=== PATIENT | male | born 1935 | race Caucasian/White ===

== ENCOUNTER → 2017-10-30 | Outpatient (CLI) | payer MEDICARE | END | disposition home or self-care (01) | LOC: SHCH 09:16 | PROVIDERS: ATTEND Internal Medicine Cardiovascular Disease | DX: I35.0 Nonrheumatic aortic (valve) stenosis (principal) | CPT/HCPCS: 93306 ==

== ENCOUNTER → 2018-11-13 | Outpatient (CLI) | payer MEDICARE | END | disposition home or self-care (01) | LOC: SHCH 10:38 | PROVIDERS: ATTEND Internal Medicine Cardiovascular Disease | DX: I35.0 Nonrheumatic aortic (valve) stenosis (principal); I70.0 Atherosclerosis of aorta; I51.7 Cardiomegaly | CPT/HCPCS: 93306 ==

== ENCOUNTER 2019-01-25 06:56 | Day surgery (SDC) | payer MEDICARE ==
[2019-01-23 08:53] VITALS: BP 105/51
[2019-01-23 09:00] LABS: BASOPHILS % (AUTO) 0.4 % (0.0-5.0); EOSINOPHILS % (AUTO) 3.9 % (0.0-8.0); LYMPHOCYTES % (AUTO) 24.2 % (21.0-51.0); MEAN CORPUSCULAR HEMOGLOBIN 33.7 pg (27.0-33.0); MEAN CORPUSCULAR HGB CONC 33.6 g/dL (32.0-36.0); MEAN CORPUSCULAR VOLUME 100.3 fL (79-99); MONOCYTES % (AUTO) 7.2 % (3.0-13.0); NEUTROPHILS % (AUTO) 64.3 % (40.0-77.0); PLATELET COUNT (AUTO) 237 K/uL (130-400); RED BLOOD CELL COUNT(AUTO) 4.08 MIL/uL (4.50-6.20); RED CELL DISTRIBUTION WIDTH 13.1 % (11.0-15.5); WHITE BLOOD COUNT (AUTO) 6.8 K/uL (4.8-10.8)
[2019-01-23 09:07] LABS: APPEARANCE,URINE Clear (CLEAR); BILIRUBIN,URINE Negative (NEGATIVE); COLOR,URINE Yellow (YELLOW); GLUCOSE, URINE (UA) 250 mg/dL (NEGATIVE); KETONES,URINE Negative (NEGATIVE); LEUKOCYTE ESTERASE ,URINE Small (NEGATIVE); NITRATE,URINE Negative (NEGATIVE); OCCULT BLOOD,URINE Large (NEGATIVE); PROTEIN,URINE Trace mg/dL (NEGATIVE); UROBILINOGEN,URINE 0.2 mg/dL (0.2-1.0)
[2019-01-23 09:10] LABS: CREATININE 0.9 mg/dL (0.5-1.5); POTASSIUM 4.1 mmol/L (3.5-5.1)
[2019-01-23 09:34] LABS: INR 1.02 (0.85-1.15); PARTIAL THROMBOPLASTIN TIME 26.1 SEC (26.3-35.5); PROTHROMBIN TIME 10.7 SEC (9.6-11.6)
[2019-01-23 09:42] LABS: BACTERIA,URINE Rare /HPF (None Seen); RBC,URINE 0-1 /HPF (0-1); SQUAMOUS EPITHELIAL CELL,UR Rare /HPF (0-2)
[2019-01-25] VITALS (12 sets, daily range): BP systolic 110–137; BP diastolic 54–66
[~2019-01-25] VITALS: Ht 170.2 cm; Wt 75.4 kg
[~2019-01-25 06:56] MED LIST: ASPI-1197 PO; ATOR-2 PO; CLOP75TA32 PO; ISOSORBIDE PO; METH-370 PO; TAMS-1 PO
[2019-01-25] MEDS ORDERED: SODIUM CHLORIDE 0.9% 1000ML 1,000 ML IV ONE (07:08)
[2019-01-25] MEDS ORDERED: NITROGLYCERIN 5 MG/ML 10 ML VIAL IV ONE (08:48)
[2019-01-25] MEDS ORDERED: IOHEXOL-350 50ML VIAL IV ONE (08:48)
[2019-01-25] MEDS ORDERED: LIDOCAINE HCL 2% 20ML ONE (08:48)
[2019-01-25] MEDS ORDERED: IOHEXOL 350 MG/ML 100ML INFUS..BTL IV ONE (08:48)
[2019-01-25] MEDS ORDERED: FENTANYL CITRATE PF 50 MCG/1 ML 2ML VIAL ONE (09:02)
[2019-01-25] MEDS ORDERED: MIDAZOLAM HCL 1 MG/ML 2ML VIAL ONE (09:02)
[2019-01-25] MEDS ORDERED: HEPARIN SODIUM 1000UNIT/ML 10ML VIAL ONE (09:20)
[2019-01-25] MEDS ORDERED: SODIUM CHLORIDE 0.9% 1000ML 1,000 ML IV SCH (09:49)
[2019-01-25] MEDS ORDERED: DEXTROSE 50%-WATER 50 ML DISP.SYRIN IV PRN (10:00)
[2019-01-25] MEDS ORDERED: ACETAMINOPHEN-CODEINE 300/30MG TAB PO PRN (10:00)
[2019-01-25] MEDS ORDERED: GLUCAGON 1MG KIT 1 MG ML IM PRN (10:00)
[2019-01-25] MEDS ORDERED: METOPROLOL TARTRATE 1 MG/ML 5ML VIAL IV PRN (10:00)
[2019-01-25] MEDS ORDERED: HYDRALAZINE HCL 20 MG/ML VIAL IV PRN (10:00)
--- NOTE | 2019-01-25 12:30 | NUR ---
RESUME RESUMED CARE OF PATIENT FROM ENID ARNETT RN. PT LYING IN BED, NO DISTRESS NOTED. DSTAT DRESSING DRY AND INTACT TO RIGHT GROIN
--- NOTE | 2019-01-25 16:00 | NUR ---
DC DC INSTRUCTIONS GIVEN TO PT/PTS , INSTRUCTED TO F/U WITH DR. DONALD , AND TO FOLLOW UP AT [facility] [place] ON JANUARY 30 AT 10 AM FOR CTA/TAVR PROTOCOL, TO KEEP NPO AFTER MN ON 01-29-19 FOR PROCEDURE. , PIV REMOVED TO LEFT ARM. SMALL BRUISING NOTED TO ARM AFTER PRESSURED APPLIED TO SITE. PT / SPOUSE VERBALIZED UNDERSTANDING. RIGHT GROIN DSTAT DRESSING DRY AND INTACT,
--- NOTE | 2019-01-25 16:05 | NUR ---
DC PT DC HOME VIA WC, NO DISTRESS NOTED. DENIES ANY PAIN OR DISCOMFORTS. ACCOMPANIED BY SPOUSE
== END 2019-01-25 16:05 | disposition home or self-care (01) ==
LOC: DAH 06:56
PROVIDERS: ATTEND Internal Medicine Cardiovascular Disease
DX: I25.118 Atherosclerotic heart disease of native coronary artery with other forms of angina pectoris (principal); Z79.899 Other long term (current) drug therapy; I35.0 Nonrheumatic aortic (valve) stenosis; Z95.5 Presence of coronary angioplasty implant and graft; E78.5 Hyperlipidemia, unspecified; Z98.890 Other specified postprocedural states; I25.5 Ischemic cardiomyopathy; F17.210 Nicotine dependence, cigarettes, uncomplicated; Z79.01 Long term (current) use of anticoagulants
CPT/HCPCS: 36415; 71045; 80048; 81001; 85025; 85610; 85730; 93005; 93460; A4606; C1894 ×3; J1644 ×2; J2250; J3010; J3490 ×2; J7030; Q9965; Q9967 ×2; 99156; 99157

== ENCOUNTER → 2019-01-30 | Outpatient (CLI) | payer MEDICARE ==
[~2019-01-30] MED LIST changes: +IOHEXOL 350 MG/ML 100ML INFUS..BTL IV ONE; +IOHEXOL-350 75 ML VIAL IV ONE; +METOPROLOL TARTRATE 1 MG/ML 5ML VIAL IV ONE
== END | disposition home or self-care (01) ==
LOC: RAH 09:56
PROVIDERS: ATTEND Internal Medicine Cardiovascular Disease
DX: N40.0 Benign prostatic hyperplasia without lower urinary tract symptoms (principal); I70.0 Atherosclerosis of aorta; N32.9 Bladder disorder, unspecified; E04.9 Nontoxic goiter, unspecified; Z90.49 Acquired absence of other specified parts of digestive tract
CPT/HCPCS: 74174; 75574; J3490; Q9967

== ENCOUNTER 2019-05-16 12:30 | Observation (INO) | payer MEDICARE ==
[~2019-05-16] VITALS: Ht 172.7 cm; Wt 71.7 kg
[~2019-05-16 12:30] MED LIST changes: -IOHEXOL 350 MG/ML 100ML INFUS..BTL IV ONE; -IOHEXOL-350 75 ML VIAL IV ONE; -METOPROLOL TARTRATE 1 MG/ML 5ML VIAL IV ONE
[2019-05-16] MEDS ORDERED: SODIUM CHLORIDE 0.9% 1000ML 1,000 ML IV SCH (13:00)
[2019-05-16] MEDS ORDERED: DEXAMETHASONE SOD PHOSPHATE 10MG/ML 1ML VIAL IV ONE (14:00)
[2019-05-16] MEDS ORDERED: DiphenhydrAMINE HCL 50 MG/ML VIAL ONE (14:00)
[2019-05-16] MEDS ORDERED: DEXAMETHASONE SOD PHOSPHATE 10MG/ML 1ML VIAL ONE (14:00)
[2019-05-16] MEDS ORDERED: DiphenhydrAMINE HCL 50 MG/ML VIAL IVP ONE (14:00)
[2019-05-16 15:00] VITALS: BP 111/53
[2019-05-16] MEDS ORDERED: SODIUM CHLORIDE 0.9% 500ML 500 ML IV ONE (16:22)
[2019-05-16 20:14] VITALS: BP 116/67
[2019-05-17 00:10] VITALS: BP 109/56
[2019-05-17 04:22] VITALS: BP 106/60
[2019-05-17 05:03] LABS: HEMATOCRIT 29.8 % (42-54); MEAN CORPUSCULAR HEMOGLOBIN 32.7 pg (27.0-33.0); MEAN CORPUSCULAR HGB CONC 35.2 g/dL (32.0-36.0); PLATELET COUNT (AUTO) 50 K/uL (130-400); WHITE BLOOD COUNT (AUTO) 3.7 K/uL (4.8-10.8)
[2019-05-17 08:08] VITALS: BP 106/58
[2019-05-17 11:24] VITALS: BP 105/64
--- NOTE | 2019-05-17 13:06 | NUR ---
DISCHARGE INSTRUCTIONS GIVEN. PATIENT IV DISCONTINUED WITH INNER CANNULA INTACT / ALL QUESTIONS ANSWERED. PATIENT TO FOLLOW UP WITH DR. PARSONS.
== END 2019-05-17 13:15 | disposition home or self-care (01) ==
LOC: EDH 12:30 → 2AH 12:31 → INTOOBSV 12:31 → 3AH 14:52
PROVIDERS: ADMIT Internal Medicine Hematology & Oncology; ATTEND Internal Medicine Hematology & Oncology
DX: C67.4 Malignant neoplasm of posterior wall of bladder (principal); I35.0 Nonrheumatic aortic (valve) stenosis; N40.1 Benign prostatic hyperplasia with lower urinary tract symptoms; I25.10 Atherosclerotic heart disease of native coronary artery without angina pectoris; H93.13 Tinnitus, bilateral; E07.9 Disorder of thyroid, unspecified; H04.123 Dry eye syndrome of bilateral lacrimal glands; Z97.4 Presence of external hearing-aid; Z96.1 Presence of intraocular lens; Z87.891 Personal history of nicotine dependence; Z79.899 Other long term (current) drug therapy
CPT/HCPCS: 36415 ×2; 36430 ×2; 85014; 85018; 85027; 86850; 86900; 86901; 86922; 99284; G0378 ×13; J1100; J1200; J7040; P9016 ×2; P9034

== ENCOUNTER → 2020-01-30 | Outpatient (CLI) | payer MEDICARE | END | disposition home or self-care (01) | LOC: SHCH 08:08 | PROVIDERS: ATTEND Internal Medicine Cardiovascular Disease | DX: Z95.2 Presence of prosthetic heart valve (principal); I35.0 Nonrheumatic aortic (valve) stenosis | CPT/HCPCS: 93306 ==

== ENCOUNTER → 2020-02-25 | Outpatient (CLI) | payer MEDICARE ==
[~2020-02-25] MED LIST changes: +IOHEXOL 350 MG/ML 100ML INFUS..BTL IV ONE
== END | disposition home or self-care (01) ==
LOC: RAH 07:52
PROVIDERS: ATTEND Urology
DX: K76.0 Fatty (change of) liver, not elsewhere classified (principal); K57.30 Diverticulosis of large intestine without perforation or abscess without bleeding; N32.89 Other specified disorders of bladder; I70.0 Atherosclerosis of aorta; R91.1 Solitary pulmonary nodule; M47.819 Spondylosis without myelopathy or radiculopathy, site unspecified; Z85.51 Personal history of malignant neoplasm of bladder
CPT/HCPCS: 74177; Q9967

== ENCOUNTER → 2020-08-07 | Outpatient (CLI) | payer MEDICARE ==
[~2020-08-07] MED LIST changes: -IOHEXOL 350 MG/ML 100ML INFUS..BTL IV ONE
== END | disposition home or self-care (01) ==
LOC: SHCH 08:36
PROVIDERS: ATTEND Internal Medicine Cardiovascular Disease
DX: I34.0 Nonrheumatic mitral (valve) insufficiency (principal); I10 Essential (primary) hypertension
CPT/HCPCS: 93306; 93356

== ENCOUNTER 2020-08-21 11:56 | Day surgery (SDC) | payer MEDICARE ==
[2020-08-18 14:55] LABS: BASOPHILS % (AUTO) 0.3 % (0.0-5.0); EOSINOPHILS % (AUTO) 2.5 % (0.0-8.0); HEMATOCRIT 38.1 % (42-54); LYMPHOCYTES % (AUTO) 26.4 % (21.0-51.0); MEAN CORPUSCULAR HEMOGLOBIN 34.4 pg (27.0-33.0); MEAN CORPUSCULAR HGB CONC 33.9 g/dL (32.0-36.0); MEAN CORPUSCULAR VOLUME 101.6 fL (79-99); MONOCYTES % (AUTO) 7.6 % (3.0-13.0); NEUTROPHILS % (AUTO) 62.9 % (40.0-77.0); PLATELET COUNT (AUTO) 156 K/uL (130-400); RED BLOOD CELL COUNT(AUTO) 3.75 MIL/uL (4.50-6.20); RED CELL DISTRIBUTION WIDTH 12.5 % (11.0-15.5); WHITE BLOOD COUNT (AUTO) 6.3 K/uL (4.8-10.8)
[2020-08-18 15:04] LABS: CREATININE 1.1 mg/dL (0.5-1.5); POTASSIUM 4.1 mmol/L (3.5-5.1)
[2020-08-18 15:05] LABS: INR 1.01 (0.85-1.15); PARTIAL THROMBOPLASTIN TIME 23.2 SEC (26.3-35.5); PROTHROMBIN TIME 10.9 SEC (9.6-11.6)
[2020-08-21] VITALS (11 sets, daily range): BP systolic 110–151; BP diastolic 52–68
[~2020-08-21] VITALS: Ht 170.2 cm; Wt 73.8 kg
[~2020-08-21 11:56] MED LIST changes: +CEFAZOLIN SODIUM 1 GM VIAL IVP SCH; +VITAMIN B12 PO; +VITAMIN D PO
--- NOTE | 2020-08-21 12:25 | NUR ---
preop pt arrived ambulatory in no distress. pt oriented to room and call light. pt has multiple bruising to arms. pt connected to playground monitor. will continue to monitor pt
[2020-08-21] MEDS ORDERED: SODIUM CHLORIDE 0.9% 1000ML 1,000 ML IV ONE (13:15)
[2020-08-21] MEDS ORDERED: BUPIVACAINE/PF 0.25% 30ML VIAL IJ ONE (14:41)
[2020-08-21] MEDS ORDERED: MEPERIDINE-PF 25 MG/ML SYG ONE ×3 (14:41→15:55)
[2020-08-21] MEDS ORDERED: CEFAZOLIN SODIUM 1 GM VIAL ONE (14:41)
[2020-08-21] MEDS ORDERED: MIDAZOLAM HCL 1 MG/ML 2ML VIAL ONE ×3 (14:41→15:55)
[2020-08-21] MEDS ORDERED: LIDOCAINE HCL 1% MDV 50ML VIAL ONE (14:41)
--- NOTE | 2020-08-21 15:08 | NUR ---
labor relations supervisor pt taken to labor relations supervisor via bed by nilson salinas rn in no distress.
[2020-08-21] MEDS ORDERED: ONDANSETRON HCL 4 MG/2 ML VIAL IV PRN (16:30)
[2020-08-21] MEDS ORDERED: ACETAMINOPHEN-CODEINE 300/30MG TAB PO PRN ×2 (16:30)
--- NOTE | 2020-08-21 16:45 | NUR ---
POST CATH RECEIVED PT AND REPORT FROM DAVE MOYA RN. PT IN LOW FOWLERS. PT IN NO DISTRESS AT THIS TIME. APPLIED ICE PACK TO SHOULDER. PT CONNECTED TO GANG SUPERVISOR. WILL CONTINUE TO MONITOR PT
--- NOTE | 2020-08-21 17:45 | NUR ---
report report given to filiberto galvez rn for continuation of care.
--- NOTE | 2020-08-21 19:15 | NUR ---
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 Also reported current NS at 100cc need to continue until d/c, infusing well. Pt denies discomfort, right groin puncture site, soft no hematoma, dressing dry/intact. Addendum: 08/21/20 at 2108 by ILIA MICHELLE RN RN Please disregard above documentation intended for another pt.
--- NOTE | 2020-08-21 20:03 | NUR ---
1944, REPORT GIVEN TO CRIS GREGORIO , PT TRANSFERED IN BED WITH PERSONAL BELONGINGS. PT STABLE, NO DISTRESS. LT UPPER CHEST PRESSURE DRESSING D/I. NO ACTIVE BLEEDING OR HEMATOMA.
--- NOTE | 2020-08-21 20:45 | NUR ---
Pt has been sited for 40 minutes, VS stable, denies pain/discomfort stated he is ready for d/c. IV access discontinued aseptically applied pressure dressing, right groin puncture site re-checked, soft on palpation, ho hematoma, dressing remain dry/intact. Pt was d/c via wheelchair accompanied by & PCP Landon. Addendum: 08/21/20 at 2107 by ILIA MICHELLE RN RN Please disregard above documentation intended for another pt.
[2020-08-21] MEDS ORDERED: CEFAZOLIN SODIUM 1 GM VIAL IVP ONE (21:00)
--- NOTE | 2020-08-21 22:45 | NUR ---
dc status dcd as ordered post x-ray of chest normal as read by radiologist. piv to left ac dcd aseptically,cath completely out ,with good hemostasis. pressure over left chest dry/intact,sling on ,with instructions given as per activity,appointments and reiterated to proceed to ER if necessary. dc documents including prescription endorsed to pt with instructions, pt verbalized understanding, v/s stable afebrile ,denies acute pain or discomfort. escorted to lobby per w/c by Chapito Addendum: 08/21/20 at 2322 by ETHEL YLON RN RN Amended: Links added.
== END 2020-08-21 22:45 | disposition home or self-care (01) ==
LOC: DAH 11:56
PROVIDERS: ATTEND Internal Medicine Cardiovascular Disease
DX: I25.5 Ischemic cardiomyopathy (principal); I50.42 Chronic combined systolic (congestive) and diastolic (congestive) heart failure; E78.5 Hyperlipidemia, unspecified; Z79.82 Long term (current) use of aspirin; Z79.899 Other long term (current) drug therapy; Z98.890 Other specified postprocedural states; Z85.51 Personal history of malignant neoplasm of bladder; Z92.21 Personal history of antineoplastic chemotherapy; Z90.49 Acquired absence of other specified parts of digestive tract; Z90.89 Acquired absence of other organs; Z83.3 Family history of diabetes mellitus; Z82.49 Family history of ischemic heart disease and other diseases of the circulatory system; Z80.9 Family history of malignant neoplasm, unspecified; Z79.01 Long term (current) use of anticoagulants
CPT/HCPCS: 33249; 36415; 71045; 80048; 85025; 85610; 85730; 93005; A4215; A4216; A4221; A4222; A4223 ×3; A4606; A4663; C1722; C1894; C1895; J0690 ×2; J2175 ×3; J2250 ×3; J3490 ×2; J7030; 33207; 99156; 99157

== ENCOUNTER 2020-10-15 10:40 | Emergency (ER) | payer MEDICARE ==
[~2020-10-15 10:40] MED LIST changes: -CEFAZOLIN SODIUM 1 GM VIAL IVP SCH
== END 2020-10-15 12:16 | disposition home or self-care (01) ==
LOC: EDH 10:40
DX: H81.10 Benign paroxysmal vertigo, unspecified ear (principal); Z87.891 Personal history of nicotine dependence
CPT/HCPCS: 70450

== ENCOUNTER → 2024-09-24 | Outpatient (CLI) | payer MEDICARE, OTHER ==
[~2024-09-24] MED LIST changes: -METH-370 PO; +METH-386 PO
--- NOTE | 2024-09-25 07:04 | HMCSR ---
APPROVED REPORT EXAM: Two-dimensional and M-mode echocardiogram with Doppler and color Doppler. INDICATION ICD: z95.2 Surgery/Intervention Pacemaker: Date: 2009 CABG: Date: 2018 RISK FACTORS Hypertension Hyperlipidemia 2D Dimensions RVDd4.3 cmLVEF(%)35.1 (>50%)LVED Vol(simp.)138.0 mL IVSd0.9 (0.7-1.1cm)FS(%)17 %LVES Vol(simp.)87.0 mL LVDd4.7 (3.8-5.6cm)LA (2D)3.4 (1.6-4.0cm)LVEF(%, simp.)37 % PWd1.0 (0.7-1.1cm)IVC diam1.5 cmLA ESV INDEX (BP)30.52 mL/m2 LVDs4.0 (2.5-4.0cm) Aortic Valve AoV Vmax2.4 m/Tasia Peak GR22.4 mmHgLVOT Vmax1.0 m/s AoV VTI0.6 mAo Mean GR14.3 mmHgLVOT VTI0.21 m Mitral Valve MV E Szta353.3 cm/sDECEL Klzs187 msMV Peak GR6 mmHg MV A Qzwa990.8 cm/sP 1/2 T42 msMV Mean GR2 mmHg E/A ratio0.9MVA (PHT)5.2 cm2MR TUC406 cm2 MR Max PG105 mmHgMR Mean PG52 mmHg TDI E/E' Bxjpib42.6E/E' Jyqxwwo33.4 Pulmonary Valve PV Vmax0.8 m/sPV VTI0.17 mPV Mean GR2 mmHg PV Peak GR2.7 mmHgPI End Jenna. Papi 1.1 cm/s Tricuspid Valve TR Vmax3.2 m/sRAP (EST) 3 mhWbVMHW46.0 mmHg TR Peak GR40.0 mmHg Left Ventricle Left ventricular cavity size is normal. Moderate global hypokinesis There is normal left ventricular wall thickness. LVEF is 30-35%. Stage II, diastolic dysfunction. Right Ventricle The right ventricle is dilated. The right ventricular systolic function is normal. Atria The left atrium size is normal. The right atrium is dilated. Aortic Valve Status post TAVR. No aortic regurgitation is present. AV Dimensionless Index is 0.38 Calculated aorti c valve maximum pressure gradient of 22.4 mmHg and mean pressure gradient of 14.3 mmHg. Mitral Valve Mitral annular calcification is mild to moderate. Mitral valve leaflets are mildly thickened. Mitral regurgitation is mild. There is no mitral valve stenosis. Tricuspid Valve The tricuspid valve leaflets appear normal. There is mild to moderate tricuspid regurgitation. Right ventricular systolic pressure is estimated at 40-50 mmHg. Pulmonic Valve Pulmonic valve is not well visualized. There is trace pulmonic valvular regurgitation. Great Vessels The aortic root is not well visualized but is probably normal size. The IVC is normal in size and col lapses >50% with inspiration. Pericardium Trival pericardial effusion. Conclusion LVEF is 30-35%. Stage II, diastolic dysfunction. Moderate global hypokinesis Status post TAVR. Calculated aortic valve maximum pressure gradient of 22.4 mmHg and mean pressure gradient of 14.3 mmH g. There is mild to moderate tricuspid regurgitation. Right ventricular systolic pressure is estimated at 40-50 mmHg.
== END | disposition home or self-care (01) ==
LOC: SHCH 07:42
PROVIDERS: ATTEND Internal Medicine Cardiovascular Disease
DX: I08.1 Rheumatic disorders of both mitral and tricuspid valves (principal); I11.9 Hypertensive heart disease without heart failure; E78.5 Hyperlipidemia, unspecified; Z95.0 Presence of cardiac pacemaker; Z95.1 Presence of aortocoronary bypass graft; Z95.2 Presence of prosthetic heart valve
CPT/HCPCS: 93306

== ENCOUNTER → 2024-09-25 | Outpatient (CLI) | payer OTHER ==
--- NOTE | 2024-09-26 10:19 | HMCSR ---
APPROVED REPORT Laterality: Bilateral VELOCITY AND DOPPLER WAVEFORM ANALYSIS AUTOMOTIVE GENERAL SALES MANAGER (R) 270.8cm/sec, Monophasic, Moderate > 50%AUTOMOTIVE GENERAL SALES MANAGER (L) 121.5cm/sec, Biphasic, Prof Fem Art. (R) 20.2cm/sec, Monophasic, Prof Fem Art. (L) 41.4cm/sec, Biphasic, Fem Art Prox. (R) 28.7cm/sec, Monophasic, Fem Art Prox. (L) 70.4cm/sec, Biphasic, Fem Art Mid. (R) 26.0cm/sec, Monophasic, Fem Art Mid. (L) 74.5cm/sec, Biphasic, Fem Art Dist (R) 20.2cm/sec, Monophasic, Fem Art Dist. (L) 55.2cm/sec, Biphasic, Pop Art(AK) (R) 131.1cm/sec, Monophasic, Pop Art (AK) (L) 51.1cm/sec, Biphasic, Pop Art (Fossa)(R) 30.4cm/sec, Monophasic, Pop Art (Fossa) (L) 33.2cm/sec, Biphasic, Pop Art(BK) (R) 19.0cm/sec, Monophasic, Pop Art (BK) (L) 31.9cm/sec, Biphasic, PROPELLER DRIVEN AIRPLANE MECHANIC Prox. (R) 46.7cm/sec, Monophasic, PROPELLER DRIVEN AIRPLANE MECHANIC Prox. (L) 104.4cm/sec, Biphasic, PROPELLER DRIVEN AIRPLANE MECHANIC Mid. (R) cm/sec, Occluded, PROPELLER DRIVEN AIRPLANE MECHANIC Mid. (L) 47.3cm/sec, Biphasic, PROPELLER DRIVEN AIRPLANE MECHANIC Dist. (R) cm/sec, Occluded, PROPELLER DRIVEN AIRPLANE MECHANIC Dist. (L) 47.3cm/sec, Biphasic, Per Art Dist. (R) 28.7cm/sec, Monophasic, Per Art Dist. (L) 16.3cm/sec, Monophasic, EMILIE Prox. (R) 22.0cm/sec, Monophasic, EMILIE Prox. (L) 57.1cm/sec, Biphasic, EMILIE Mid. (R) 23.8cm/sec, Monophasic EMILIE Mid. (L) 203.4cm/sec, Biphasic, Moderate > 50% EMILIE Dist. (R) 23.8cm/sec, Monophasic, EMILIE Dist. (L) 38.3cm/sec, Biphasic, Technologist Impression Diffuse atherosclerosis throughout the bilateral lower extremities. There is evidence of moderate stenosis in the right common femoral artery with monophasic flow distal ly. The right posterior tibial artery appears occluded. There is evidence of moderate stenossis in the left anterior tibial artery. Conclusion Hemodynamically significant peripheral arterial disease bilaterally Consider formal angiography if clinically indicated Conclusion Hemodynamically significant peripheral arterial disease bilaterally Consider formal angiography if clinically indicated
== END | disposition home or self-care (01) ==
LOC: SHCH 07:36
PROVIDERS: ATTEND Internal Medicine Cardiovascular Disease
DX: I70.203 Unspecified atherosclerosis of native arteries of extremities, bilateral legs (principal)
CPT/HCPCS: 93925

== ENCOUNTER → 2024-12-05 | Outpatient (CLI) | payer OTHER ==
[~2024-12-05] MED LIST changes: +METF-446 PO
[2024-12-05 12:24] LABS: ALBUMIN 3.2 g/dL (3.5-5.0); BILIRUBIN,TOTAL 0.6 mg/dL (0.2-1.0); CREATININE 0.9 mg/dL (0.5-1.3); POTASSIUM 4.4 mmol/L (3.5-5.1); TOTAL PROTEIN, SERUM 6.3 g/dL (6.0-8.3)
[2024-12-05 12:51] LABS: BASOPHILS # (AUTO) 0.02 K/uL (0.00-0.20); BASOPHILS % (AUTO) 0.3 % (0.0-5.0); EOSINOPHILS # (AUTO) 0.14 K/uL (0.00-0.70); EOSINOPHILS % (AUTO) 1.9 % (0.0-8.0); HEMATOCRIT 40.6 % (42-54); IMMATURE GRANULOCYTE ABSOLUTE 0.04 K/uL (0-1); LYMPHOCYTES # (AUTO) 1.4 K/uL (1.0-4.8); LYMPHOCYTES % (AUTO) 19.6 % (21.0-51.0); MEAN CORPUSCULAR HEMOGLOBIN 34.4 pg (27.0-33.0); MEAN CORPUSCULAR HGB CONC 32.5 g/dL (32.0-36.0); MEAN CORPUSCULAR VOLUME 105.7 fL (79-99); MONOCYTES # (AUTO) 0.6 K/uL (0.1-1.0); MONOCYTES % (AUTO) 8.1 % (3.0-13.0); NEUTROPHILS # (AUTO) 5.1 K/uL (1.8-7.7); NEUTROPHILS % (AUTO) 69.6 % (40.0-77.0); PLATELET COUNT (AUTO) 187 K/uL (130-400); RED BLOOD CELL COUNT(AUTO) 3.84 MIL/uL (4.50-6.20); RED CELL DISTRIBUTION WIDTH 13.2 % (11.0-15.5); WHITE BLOOD COUNT (AUTO) 7.3 K/uL (4.8-10.8)
== END | disposition home or self-care (01) ==
LOC: LAB 09:55
PROVIDERS: ATTEND Internal Medicine Cardiovascular Disease
DX: R42 Dizziness and giddiness (principal); R20.2 Paresthesia of skin
CPT/HCPCS: 36415; 80053; 85025

== ENCOUNTER 2025-06-09 11:29 | Inpatient (IN) | payer OTHER ==
[~2025-06-09] VITALS: Ht 261.6 cm; Wt 57.1 kg
[2025-06-09] VITALS (8 sets, daily range): BP systolic 105–111; BP diastolic 55–61; PULSE 96–102; RESP 18–21; TEMP 98.4–98.8; O2SAT 94–99
[~2025-06-09 11:29] MED LIST changes: +ACET-3859 PO; -ASPI-1197 PO; -ATOR-2 PO; +ATOR40TA71 PO; -CLOP75TA32 PO; +IPRA3AMP24 IH; -ISOSORBIDE PO; +MAGN400T53 PO; -METF-446 PO; +MIDO10TA3 PO; +ONDA-104 PO; +PANT40TA54 PO; -TAMS-1 PO; -VITAMIN B12 PO; -VITAMIN D PO
--- NOTE | 2025-06-09 11:46 | EKG ---
[facility] Test Date: 2025-06-09 Test Time: 11:41:29 Pat Name: JEREMY JOSE Department: ED Room: Gender: M Cooker Tender: [birth year] : 1935 Requested By: CHANDRA CORTES Order Number: [id number] Reading MD: Jimbo Tirado Measurements Intervals [place] Rate: 97 P: 93 WA: 197 QRS: -89 QRSD: 143 T: 0 QT: 336 QTc: 427 Interpretive Statements Sinus rhythm Multiform ventricular premature complexes Right bundle branch block Anteroseptal MS, old Electronically Signed On 06-09-2025 14:02:19 CDT by Jimbo Tirado Please click the below link to view image of tracing.
[2025-06-09 11:51] LABS: IMMATURE GRANULOCYTE ABSOLUTE 0.03 K/uL (0-1); NUCLEATED RED BLOOD CELLS 0.0 % (0.0-0.19); PLATELET COUNT (AUTO) 179 K/uL (130-400); RED BLOOD CELL COUNT(AUTO) 3.60 MIL/uL (4.50-6.20); RED CELL DISTRIBUTION WIDTH 17.2 % (11.0-15.5); WHITE BLOOD COUNT (AUTO) 7.6 K/uL (4.8-10.8)
[2025-06-09 11:52] LABS: ABG BASE EXCESS 4.9 mmol/L (-2.0-3.0); ABG HCO3 28.5 mmol/L (21.0-28.0); ABG OXYGEN SATURATION 91.7 % (94.0-98.0); ABG PCO2 39 mmHg (35-48); ABG PH 7.488 (7.350-7.450); CARBON MONOXIDE 0.1 % (0.5-1.5); PO2, ARTERIAL BG 64.4 mmHg (83.0-108.0); TEMPERATURE, CELSIUS BG 37.0 CELSIUS (35.5-37.0); VENT MODE, BG RA (ROOM AIR)
[2025-06-09 12:07] LABS: CREATININE 0.5 mg/dL (0.5-1.3); GLOMERULAR FILTR. RATE CALC 98.0 mL/min (>90); GLUCOSE,RANDOM 177.0 mg/dL (70-105); SODIUM SERUM 139.0 mmol/L (136-145); UREA NITROGEN, BLOOD 9.0 mg/dL (7-18)
[2025-06-09 12:48] LABS: SARS-CoV-2, RNA, NAAT NEGATIVE SARS CoV-2 (NEGATIVE)
[2025-06-09 12:52] LABS: INFLUENZA TYPE A Negative For Type A (NEGATIVE); INFLUENZA TYPE B Negative For Type B (NEGATIVE)
--- NOTE | 2025-06-09 13:12 | ERN ---
General Chief Complaint: Shortness of Breath Stated Complaint: COUGH AND SHORTNESS OF BREATH Time Seen by MD: 11:30 Source: patient History of Present Illness Initial Comments PATIENT IS A AN 89-YEAR-OLD MALE COMING IN SHORTNESS OF BREATH AND COUGH. P ATIENT STATES HE HAS A HISTORY OF COPD WELL CHF HAS BEEN IN HIS IN FOR FRACTION 20%. PATIENT DOES STATE THAT HOME OXYGEN HAS BEEN HAVING A PRODUCTIVE COUGH. Allergies: Coded Allergies: No Known Allergies (Unverified Allergy, Unknown, 01/23/19) Home Meds Reported Medications Acetaminophen (Acetaminophen) 325 Mg Tablet, 2 TAB PO Q6HPRN PRN for pain or fever for 24 Days, #100 TAB 0 Refills 05/22/25 Magnesium Oxide (Magnesium Oxide) 400 Mg Tablet, 1 TAB PO BID for 30 Days, #60 TAB 0 Refills 05/22/25 Atorvastatin Calcium (Atorvastatin Calcium) 40 Mg Tablet, 1 TAB PO HS for 30 Days, #30 TAB 0 Refills 05/22/25 Ondansetron HCl (Ondansetron HCl) 4 Mg Tablet, 1 TAB PO Q6HPRN PRN for nausea/vomiting, #10 TAB 0 Refills 05/22/25 Midodrine HCl (Midodrine HCl) 10 Mg Tablet, 1 TAB PO TIDP for 30 Days, #90 TAB 0 Refills 05/22/25 Ipratropium/Albuterol Sulfate (Iprat-Albut 0.5-3(2.5) mg/3 ml) 0.5 Mg-3 Mg (2.5 Mg Base)/3 Ml Ampul.neb, 3 ML IH Q6HPRN PRN for SHORTNESS OF BREATH 05/22/25 Pantoprazole Sodium (Pantoprazole Sodium) 40 Mg Tablet.dr, 1 TAB PO DAILY 05/22/25 Methimazole (Methimazole) 5 Mg Tablet, 5 MG PO DAILY, TAB 01/23/19 Past Medical History Past Medical History: Cancer, CHF, COPD, Diabetes-Type II, Hypotension Medical History Other: LUNG Past Surgical History: Appendectomy, Cholecystectomy Surgical History Other: RT LEG SURGERY ROS Dictation CONSTITUTIONAL: NO CHILLS, NO FEVER, NO WEAKNESS, NO DIAPHORESIS, NO MALAISE. HEAD/FACE: NO SIGNS OF TRAUMA. EENT: NO EYE PAIN, NO BLURRED VISION, NO TEARING, NO DOUBLE VISION, NO EAR PAIN, NO EAR DISCHARGE, NO NOSE PAIN, NO NASAL CONGESTION, NO THROAT PAIN, NO THROAT SWELLING, NO MOUTH PAIN. RESPIRATORY: COUGH, NO ORTHOPNEA, NO SOB, NO STRIDOR, NO WHEEZING. CARDIOVASCULAR: NO CHEST PAIN, NO EDEMA, NO PALPITATIONS, NO SYNCOPE. GASTROINTESTINAL/ABDOMINAL: NO ABDOMINAL PAIN, NO CONSTIPATION, NO DIARRHEA, NO NAUSEA, NO VOMITING. GENITOURINARY: NO ABNORMAL DISCHARGE, NO DYSURIA, NO FREQUENT URINATION, NO HEMATURIA. NO COMPLAINTS OF PAIN IN THE GENITALS. MUSCULOSKELETAL: NO BACK PAIN, NO GOUT, NO JOINT PAIN, NO JOINT SWELLING, NO MUSCLE PAIN, NO MUSCLE STIFFNESS, NO NECK PAIN. INTEGUMENTARY: NO CHANGE IN COLOR, NO CHANGE IN HAIR/NAILS, NO DRYNESS, NO LE PALMER, NO LUMPS, NO RASH. NEUROLOGICAL/PSYCH: NO ANXIETY, NOT DEPRESSED, NO EMOTIONAL PROBLEM, NO HEADACHE, NO NUMBNESS, NO PRE-EXISTING DEFICIT, NO HISTORY OF SEIZURES, NO TREMORS, NO WEAKNESS. HEMATOLOGIC/LYMPHATIC: NOT ANEMIC, NO HISTORY OF BLOOD CLOTS, NO APPARENT BLEEDING, NO BRUISING, GLANDS NOT SWOLLEN. ALL SYSTEMS NEGATIVE, EXCEPT NOTED. Physical Exam Physical Exam Dictation VITAL SIGNS: REVIEWED. GENERAL APPEARANCE: ALERT, ORIENTED X3, NO ACUTE DISTRESS, OBESE. HEAD AND FACE: NON-TRAUMATIC. EYES: PERRL, PINK CONJUNCTIVAS, EYELID NO TRAUMA, ANTERIOR CHAMBER CLEAR. EARS: PINNAS INTACT AND NO SIGNS OF TRAUMA OR ERYTHEMA. EAR CANALS CLEAR AND NO DISCHARGE. TMS NO ERYTHEMA. NOSE: NO DISCHARGE, NO BLEEDING. OROPHARYNX: MOUTH NORMAL, TEETH NO CARIES, TONGUE PINK. PHARYNX CLEAR, NO ERYTHEMA. TONSILS NO EXUDATES, NO ABSCESSES NOTED. MUCOUS MEMBRANE MOIST. NECK: SUPPLE, NON-TENDER, NO THYROMEGALY, NO MASSES, NO JVD, NO BRUITS. BREAST: DEFERRED. CHEST: NO TENDERNESS, NO CREPITUS, NO PARADOXICAL MOVEMENT, NO RETRACTIONS. LUNGS: WELL-VENTILATED, SYMMETRIC, RALES, NO WHEEZING, NO RHONCHI, NO STRIDOR, GOOD BREATH SOUNDS BILATERALLY. HEART: REGULAR RATE, REGULAR RHYTHM, NO MURMUR, NO GALLOPS. VASCULAR: NO PERIPHERAL EDEMA. ABDOMEN: SOFT, POSITIVE BOWEL SOUNDS, NONDISTENDED, NO GUARDING, NONTENDER, NO REBOUND, NO MASSES NO HEPATOMEGALY, NO SPLENOMEGALY, NO HANNAH'S SIGN, NO HERNIAS. RECTAL: DEFERRED. GENITAL: DEFERRED. NEUROLOGICAL: NORMAL SPEECH, GROSS MOTOR FUNCTION INTACT, GROSS SENSORY FUNCTION INTACT. MUSCULOSKELETAL: NECK NONTENDER, FULL RANGE OF MOTION, BACK NONTENDER, FULL RANGE OF MOTION. EXTREMITIES: NONTENDER, FULL RANGE OF MOTION. SKIN: COLOR PINK, DRY, NO TURGOR, NO RASH, NO LACERATIONS, NO ABRASIONS, NO CONTUSIONS. LYMPHATICS: DEFERRED. Results Laboratory and Microbiology Lab and Micro Result Laboratory Tests Test 06/09/25 11:47 06/09/25 11:50 06/09/25 12:16 White Blood Count 7.6 K/uL (4.8-10.8) Red Blood Count 3.60 MIL/uL (4.50-6.20) L Hemoglobin 10.4 g/dL (14.0-18.0) L Hematocrit 32.7 % (42-54) L Mean Corpuscular Volume 90.8 fL (79-99) Mean Corpuscular Hemoglobin 28.9 pg (27.0-33.0) Mean Corpuscular Hemoglobin Concent 31.8 g/dL (32.0-36.0) L Red Cell Distribution Width 17.2 % (11.0-15.5) H Platelet Count 179 K/uL (130-400) Mean Platelet Volume 9.0 fL (7.5-10.5) Immature Granulocyte % (Auto) 0.4 % (0-1) Neutrophils (%) (Auto) 61.4 % (40.0-77.0) Lymphocytes (%) (Auto) 26.4 % (21.0-51.0) Monocytes (%) (Auto) 5.9 % (3.0-13.0) Eosinophils (%) (Auto) 5.5 % (0.0-8.0) Basophils (%) (Auto) 0.4 % (0.0-5.0) Neutrophils # (Auto) 4.7 K/uL (1.8-7.7) Lymphocytes # (Auto) 2.0 K/uL (1.0-4.8) Monocytes # (Auto) 0.5 K/uL (0.1-1.0) Eosinophils # (Auto) 0.42 K/uL (0.00-0.70) Basophils # (Auto) 0.03 K/uL (0.00-0.20) Absolute Immature Granulocyte (auto 0.03 K/uL (0-1) Nucleated Red Blood Cells 0.0 % (0.0-0.19) Sodium Level 139 mmol/L (136-145) Potassium Level 4.4 mmol/L (3.5-5.1) Chloride Level 102 mmol/L (101-111) Carbon Dioxide Level 32 mmol/L (21-32) Blood Urea Nitrogen 9 mg/dL (7-18) Creatinine 0.5 mg/dL (0.5-1.3) Glomerular Filtration Rate Calc 98 mL/min (>90) Random Glucose 177 mg/dL (70-105) H Total Calcium 8.4 mg/dL (8.5-10.1) L Troponin I High Sensitivity 15 ng/L (4-75) B-Type Natriuretic Peptide 282 pg/mL (0-100) H Blood Gas Specimen Type Arterial Arterial Blood pH 7.488 (7.350-7.450) Arterial Blood Partial Pressure CO2 39 mmHg (35-48) Arterial Blood Partial Pressure O2 64.4 mmHg (83.0-108.0) L Arterial Blood HCO3 28.5 mmol/L (21.0-28.0) H Arterial Blood Oxygen Saturation 91.7 % (94.0-98.0) L Arterial Blood Base Excess 4.9 mmol/L (-2.0-3.0) H Hemoglobin (Blood Gas) 11.1 g/dL (13.5-17.5) L Sodium (Blood Gas) 134 MMOL/L (136-145) L Bedside Potassium (Blood Gas) 4.0 MMOL/L (3.4-4.5) Bedside Chloride (Blood Gas) 101 MMOL/L (98-107) Bedside Glucose (Blood Gas) 166 MG/DL (65-95) H Bedside Ionized Calcium (Blood Gas) 1.17 MMOL/L (1.15-1.33) Bedside Lactic Acid (Blood Gas) 1.26 MMOL/L (0.36-0.75) H Blood Gas Temperature 37.0 CELSIUS (35.5-37.0) Blood Gas Vent Mode RA (ROOM AIR) FiO2 21.0 % Blood Gas Specimen Comment LR DR CORTES Influenza Type A Antigen Negative For Type A Influenza Type B Antigen Negative For Type B SARS-CoV-2, RNA, NAAT NEGATIVE SARS CoV-2 Labs Reviewed?: Yes EKG/XRAY/US/CT/MRI X-RAY Comment CHEST [id number]-SIDED PULMONARY CONGESTION, PNEUMONIA MDM MDM: DIFFERENTIAL DIAGNOSIS: PULMONARY CONGESTION, PNEUMONIA, HISTORY OF COPD, ON HOME O2 RATIONALE: TESTS CONSIDERED AND ORDERED SECONDARY TO SHARED DECISION MAKING INCLUDE: LABS, ECG AND RADIOLOGY PREVIOUS OUTSIDE RECORDS REVIEWED: OLD ER VISITS. RISK OF COMPLICATION AND/OR MORBIDITY OR MORTALITY OF PATIENT MANAGEMENT: NONE MEDICATIONS-PER MEDICATION RECONCILIATION NEED FOR HOSPITALIZATION: PATIENT DOES MEET CRITERIA FOR HOSPITALIZATION. NEED FOR EMERGENCY MAJOR/MINOR SURGERY: NO THERE ARE NO SOCIAL CONCERNS WITH THIS PATIENT. PRESCRIPTION DRUG MANAGEMENT PRESCRIPTIONS WILL INCLUDE SYMPTOMATIC CARE PATIENT'S PRIOR EXTERNAL MEDICAL RECORDS FROM OTHER ER VISITS WERE REVIEWED BY ME INDICATED. PRIOR TESTING AND RESULTS FROM PREVIOUS VISITS WERE REVIEWED. PRIOR TESTS WERE TAKEN INTO ACCOUNT WITH MEDICAL DECISION MAKING AND RESOURCE UTILIZATION, INDEPENDENT HISTORIAN/HISTORIANS WERE USED TO OBTAIN COMPLETE MEDICAL HISTORY. I INDEPENDENTLY INTERPRETED THE TEST THAT WERE PERFORMED, RESULTS WERE REVIEWED BY ME AND CONSIDERED FINDINGS ON RADIOLOGY IF ORDERED. MEDICAL MANAGEMENT AND EXAMINATION INTERPRETATION DISCUSSIONS WERE HAD BY ME WITH OTHER QUALIFIED HEALTHCARE PROFESSIONALS INDICATED FOR THE PATIENT'S CARE. PATIENT WILL BE ADMITTED UNDER THE CARE OF DR. PARSONS FOR ONGOING [place]. ED Course Orders Procedure Category Date Status Time Cbc With Differential LAB 06/09/25 Complete 11:33 Chest 1vw RAD 06/09/25 Resulted 11:33 12 Lead Ekg Tracing- EKG 06/09/25 Complete Technical 11:33 Troponin I High LAB 06/09/25 Complete Sensitivity 11:33 Basic Metabolic Panel LAB 06/09/25 Complete 11:33 B-Type Natriuretic LAB 06/09/25 Complete Peptide 11:33 Covid Rna Naat LAB 06/09/25 Complete 11:33 Influenza Type A & B, LAB 06/09/25 Complete Rapid 11:33 Arterial Blood Gas + RT 06/09/25 Transmitted 11:33 Arterial Blood Gas LAB 06/09/25 Complete Arterial + 11:50 Azithromycin 500mg+Ns PHA 06/09/25 In Process 250ml (Azithromyci 13:30 Ceftriaxone 1g Vial PHA 06/09/25 Complete (Rocephine 1g Inj) 13:30 Ipratropium/Albuterol PHA 06/09/25 Complete Neb (Duoneb) 13:30 Current Medications Medications (Trade) Dose Ordered Sig/Archana Route PRN Reason Start Time Stop Time Status Last Admin Dose Admin Albuterol (DUOneb) 2 udvial ONCE ONCE IH 06/09/25 13:30 06/09/25 13:31 DC 06/09/25 13:35 Azithromycin 250 ml @ 250 mls/hr ONCE ONCE IVPB 06/09/25 13:30 06/09/25 14:29 Ceftriaxone Sodium (ROCEphine 1G INJ) 1 gm ONCE ONCE IVPB 06/09/25 13:30 06/09/25 13:31 DC Vital Signs Date Time Temp Pulse Resp B/P (MAP) Pulse Ox O2 Delivery O2 Flow Rate FiO2 06/09/25 11:30 98.2 99 24 124/77 99 Nasal Cannula 3.0 DX & DISP Disposition: Inpatient Decision to Admit Time: 13:36 Departure Impression: Primary Impression: Pleural effusion, right Additional Impressions: Respiratory failure with hypoxia, Failure to thrive Condition: Stable Referrals: MARIAELENA PARSONS MD (PCP) CHANDRA CORTES MD Jun 09, 2025 13:12
--- NOTE | 2025-06-09 13:22 | HMCIMG ---
EXAM: CR Chest, 1 View. CLINICAL HISTORY: SOB COMPARISON: Radiograph dated May 25, 2025 Findings: AP view of the chest is submitted. Increased airspace disease within the mid to lower right lung, and also at the left lung base and may reflect an infectious and/inflammatory process. Small right pleural effusion. No pneumothorax. AICD lead overlies right ventricle. Heart size is stable. Mild central pulmonary vascular congestion. IMPRESSION: 1. Right mid to lower lung and left basilar airspace disease, may reflect pneumonia. Small right pleural effusion. 2. Mild central pulmonary vascular congestion. /[place]
[2025-06-09] MEDS: 0.9%NACL 1000ML 1,000 ML IV SCH (14:10)
[2025-06-09] MEDS: AZITHROMYCIN 500MG+NS 250ML 250 ML IVPB ONE (14:24)
--- NOTE | 2025-06-09 14:35 | NUR ---
DCP:LONGTERM Pt currently lives at a long term on [address], [place] ([phone]). Pt uses a wheelchair, walker, and hospital bed. Pt states that he has PT [facility] go [facility] 2x a [facility]. Pt states that a nurse from the [facility] goes to check on him "when he needs it". Facility assists with ADLs. PCP is Dr. Landen Tobias and uses the [facility] for any RX needs. At dc pt will return to the long term and states that he would need assistance with transportation. Addendum: 06/09/25 at 1439 by DINO CROWELL Amended: Links added.
--- NOTE | 2025-06-09 17:45 | CONS ---
[facility] CONSULTATION NOTE Date Patient Seen: Jun 09, 2025 Time of Visit: 2229 Supervising Physician: Dr. Matt Espinoza[ ] Reason for Consultation: [Pleural effusion, hypoxic resp failure ] [facility]] Outpatient Specialists: Dr. Tobias ] Inpatient Consults: [BIS team: pleural effusion ] PROBLEM LIST: Pleural effusion-POA Acute hypoxic resp failure -POA Bilateral CAP-POA rule-out P.E.-POA, pending CTA chest report RLE DVT-POA (venous US revealed partial deep vein thrombosis in the right common femoral and proximal superficial femoral veins) Lung cancer-POA HX of bladder thrombus HX of Bladder CA PPM AICD in situ COPD, not on exacerbation Former smoker Thyroid disorder Chronic bullock Hypotension PLAN: -Start on IV Rocephin and Doxycyline -Start on IV Heparin drip for DVT findings -Duoneb treatment -I.S.q1H x 10 while awake -Obtain pneumo studies -Manage cough PRN -Neb treatment -Titrate oxygen to keep sats >92% -Obtain 2decho in am -IV Lasix 20 mg BID -Cardiac telemetry -the rest of medical management per primary team HPI: [Patient is 89-year-old male with PMH significant for right lung cancer, bladder cancer, bladder thrombosis, ppm/AICD, hypotension, thyroid disorder, HLD, COPD and former smoker who was presented to ED concerning intractable coughing and shortness of Breath that is ongoing for the past several days. Patient denies fever, chills, N/V, chest pain, back pain, dizziness, hematemesis, hemoptysis or syncope. At the ED, his preliminary lab works were unremarkable. Chest x-ray was concerning for central pulmonary vascular congestion, pleural effusion and pneumonia. Bis team was consulted concerning these findings. At the time my assessment, patient is resting comfortably on the bed, currently on 2 L/min via NC, hemodynamically stable in no acute distress. Physical assessment was concerning for coarse crackles on bilateral bases with mild BLE edema. D-dimer was ordered that showed elevation of values above 2000. BLE ultrasound and CT AP to rule out DVT and PE respectively were pending result. Goals of care were discussed with the patient verbalizes understanding and agreement. On behalf of BIS team, thank you for the opportunity to participate on Mr. Riley's care. ] PAST MEDICAL HX: see above PAST SURGICAL HX: noncontributory SOCIAL HISTORY: No tobacco, ETOH, or illicit drug use Coded Allergies: No Known Allergies (Unverified Allergy, Unknown, 01/23/19) REVIEW OF SYSTEMS: 12 point ROS reviewed with patient. Pertinent positives mentioned above. Otherwise negative. PHYSICAL EXAM: GENERAL: alert, weak, awake oriented x 3 HEENT: EOMI, Sclera non icteric, moist mucosa NECK: Supple, no JVD, trachea midline LUNGS: Clear breath sounds bilaterally. No wheezes HEART: Regular rate and rhythm. Normal S1 and S2, without murmurs ABD: Abdomen soft, nontender. Bowel sounds present EXT: No clubbing cyanosis or edema NEURO: Alert and oriented to person, follows commands Vital Signs (last 8hr) Date Time Temp Pulse Resp B/P (MAP) Pulse Ox O2 Delivery O2 Flow Rate FiO2 06/09/25 15:01 99 Nasal Cannula* 2 28 06/09/25 14:50 98.8 97 18 111/61 94 Nasal Cannula 2.0 06/09/25 13:40 99 21 N/Cannula Low lpm 3.0 06/09/25 13:38 99 21 06/09/25 11:30 98.2 99 24 124/77 99 Nasal Cannula 3.0 LABS: Hematology Labs: Test 06/09/25 11:47 Range/Units White Blood Count 7.6 4.8-10.8 K/uL Red Blood Count 3.60 L 4.50-6.20 MIL/uL Hemoglobin 10.4 L 14.0-18.0 g/dL Hematocrit 32.7 L 42-54 % Mean Corpuscular Volume 90.8 79-99 fL Mean Corpuscular Hemoglobin 28.9 27.0-33.0 pg Mean Corpuscular Hemoglobin Concent 31.8 L 32.0-36.0 g/dL Red Cell Distribution Width 17.2 H 11.0-15.5 % Platelet Count 179 130-400 K/uL Mean Platelet Volume 9.0 7.5-10.5 fL Immature Granulocyte % (Auto) 0.4 0-1 % Neutrophils (%) (Auto) 61.4 40.0-77.0 % Lymphocytes (%) (Auto) 26.4 21.0-51.0 % Monocytes (%) (Auto) 5.9 3.0-13.0 % Eosinophils (%) (Auto) 5.5 0.0-8.0 % Basophils (%) (Auto) 0.4 0.0-5.0 % Neutrophils # (Auto) 4.7 1.8-7.7 K/uL Lymphocytes # (Auto) 2.0 1.0-4.8 K/uL Monocytes # (Auto) 0.5 0.1-1.0 K/uL Eosinophils # (Auto) 0.42 0.00-0.70 K/uL Basophils # (Auto) 0.03 0.00-0.20 K/uL Absolute Immature Granulocyte (auto 0.03 0-1 K/uL Nucleated Red Blood Cells 0.0 0.0-0.19 % Chemistry Labs: Test 06/09/25 16:02 06/09/25 11:47 Range/Units Whole Blood Glucose 157 H 70-110 MG/DL Sodium Level 139 136-145 mmol/L Potassium Level 4.4 3.5-5.1 mmol/L Chloride Level 102 101-111 mmol/L Carbon Dioxide Level 32 21-32 mmol/L Blood Urea Nitrogen 9 7-18 mg/dL Creatinine 0.5 0.5-1.3 mg/dL Glomerular Filtration Rate Calc 98 >90 mL/min Random Glucose 177 H 70-105 mg/dL Total Calcium 8.4 L 8.5-10.1 mg/dL Troponin I High Sensitivity 15 4-75 ng/L B-Type Natriuretic Peptide 282 H 0-100 pg/mL DIAGNOSTICS / RADIOLOGY RESULTS: [ ] PLAN NEURO: Minimize central acting medications as possible. Maintain fall precautions, adequate lighting during the day PULMONARY: Supplemental 02 as needed. Maintain aspiration precautions at all times CARDIOVASCULAR: Follow hemodynamics. Vital signs per facility protocol GI & NUTRITION: Continue with nutritional support. Continue stool softeners and laxatives as needed. KIDNEYS & ELECTROLYTES: Strict monitoring of intake, output and overall fluid balance. Avoid nephrotoxic medications to the extent possible. Medications to be dosed according to renal function. Monitor electrolytes and replace as needed ENDOCRINE: Maintain blood glucose between 100-180 at all times. Hypoglycemia protocol in place INFECTIOUS DISEASE: Trend temperature, WBC and procalcitonin level Follow cultures, deescalate antibiotics as soon as possible. Panculture if new onset fever ONCOLOGY/HEMATOLOGY/COAGULATION: Monitor for s/s of bleeding Monitor hemoglobin, coagulation studies as needed SKIN: Pressure ulcer prevention per facility protocol Specialty mattress ORTHO/REHAB: Continue PT/OT Prophylaxis: Continue GI and DVT prophylaxis Code Status: Full Resuscitation Disposition: SAVANNA CORBIN Jun 09, 2025 17:45
--- NOTE | 2025-06-09 21:05 | HMCIMG ---
EXAMINATION: SPECTRAL DOPPLER ULTRASOUND EXAMINATION OF THE BILATERAL LOWER EXTREMITY VEINS. CLINICAL HISTORY: Elevated D-Dimer. COMPARISON: None provided. TECHNIQUE: Real-time ultrasound scan of the veins of the bilateral lower extremity with color Doppler flow, spectral waveform analysis and compression. FINDINGS: DEEP VEINS: Right: The mid, distal superficial femoral and popliteal veins are echolucent and compressible. There is normal color Doppler flow throughout. The visualized calf veins appear patent. The common femoral and proximal superficial femoral veins are partially compressible with partial flow on augmentation. Left: The common femoral, superficial femoral, and popliteal veins are echolucent and compressible. There is normal color Doppler flow throughout. The visualized calf veins appear patent. SUPERFICIAL VEINS: The greater saphenous veins are patent and compressible. SOFT TISSUES: No popliteal fossa cyst or other abnormalities. IMPRESSION: Partial dep vein thrombosis in the right common femoral and proximal superficial femoral veins. No deep venous thrombosis evident in the remainder of the bilateral lower extremity. No superficial thrombophlebitis in the bilateral lower extremity. /[place]
[2025-06-09] MEDS ORDERED: IOHEXOL 350 MG/ML 100ML INFUS..BTL IV ONE (21:23)
[2025-06-09] MEDS ORDERED: IOHEXOL-350 75 ML VIAL IV ONE (21:23)
[2025-06-09] MEDS ORDERED: PHARMACY COMMUNICATION MISC STA (22:59)
--- NOTE | 2025-06-09 23:22 | HMCIMG ---
EXAM: CTA examination of the chest CLINICAL HISTORY: Elevated d-dimer. TECHNIQUE: Thin collimated axial CTA images of the chest without and with intravenous contrast were obtained with sagittal and coronal reformatted images also submitted. CT scan is done according to ALARA (As Low as Reasonably Achievable). COMPARISON: Prior CT chest dated 05/21/25. FINDINGS: No acute infiltrate or pulmonary mass. Multiple tiny nodules with tree-in-bud appearance in the dependent segment of the left lower lobe. Subsegmental atelectasis in the right middle lobe. Bilateral small subpleural scarring. Large right pleural effusion with partial collapse of the right lung. Mild left pleural effusion. No pericardial effusion. The heart size is within normal limits. Left-sided AICD device with tip of the lead in the right ventricle. Coronary artery calcifications. Atherosclerotic plaques and wall calcifications in the thoracic aorta with a stable metallic stent at the aortic root. No thoracic aortic aneurysm or dissection. No filling defect or pulmonary thromboembolism. No axillary, supraclavicular, or mediastinal lymphadenopathy. Enlarged thyroid gland with hypodense nodules. Limited views of the upper abdomen demonstrate a tiny left renal calculus. No acute or suspicious osseous abnormality. Multilevel syndesmophytes in the thoracic spine with fusion at the facet joints, suggesting changes of ankylosing spondylitis. Stable, well-circumscribed isodense lesion in the left posterior abdominal wall. IMPRESSION: No pulmonary arterial thromboembolism. Stable large right pleural effusion with partial collapse of the right lung. Mild left pleural effusion is a new finding. Stable multiple tiny nodules with tree in bud appearance in the dependent segment of the left lower lobe concerning an infective/inflammatory process. Atherosclerotic plaques and wall calcifications in the thoracic aorta with a stable metallic stent at the aortic root. /[place]
[2025-06-10] VITALS (17 sets, daily range): BP systolic 100–107; BP diastolic 48–66; PULSE 68–108; RESP 18–21; TEMP 97.5–98; O2SAT 94–98
[2025-06-10 01:25] LABS: INR 1.07 (0.85-1.15)
[2025-06-10 06:48] LABS: INR 1.07 (0.85-1.15)
[2025-06-10 06:51] LABS: NUCLEATED RED BLOOD CELLS 0.0 % (0.0-0.19); PLATELET COUNT (AUTO) 170.0 K/uL (130-400); RED BLOOD CELL COUNT(AUTO) 3.71 MIL/uL (4.50-6.20); RED CELL DISTRIBUTION WIDTH 17.2 % (11.0-15.5); WHITE BLOOD COUNT (AUTO) 7.6 K/uL (4.8-10.8)
[2025-06-10 07:07] LABS: ASPARTATE AMINOTRANSFERASE 17.0 U/L (10-37); CREATININE 0.8 mg/dL (0.5-1.3); GLOMERULAR FILTR. RATE CALC 85.0 mL/min (>90); GLUCOSE,RANDOM 142.0 mg/dL (70-105); SODIUM SERUM 140.0 mmol/L (136-145); TOTAL PROTEIN, SERUM 5.6 g/dL (6.0-8.3); UREA NITROGEN, BLOOD 7.0 mg/dL (7-18)
[2025-06-10] MEDS ORDERED: PoTASSium chl 10% ELIXIR 20MEQ 20 MEQ/15 ML UDCUP PO PRN (08:30)
[2025-06-10] MEDS: PoTASSium chloRIDE 20MEQ ER 20 MEQ ERTAB PO PRN (09:30)
[2025-06-10] MEDS: DOXYCYCLINE HYCLATE 100 MG TABLET PO SCH (09:30)
--- NOTE | 2025-06-10 11:12 | PN ---
[facility] PROGRESS NOTE Date Patient Seen: Jun 10, 2025 Time of Visit: 11:11 Supervising Physician: Dr. Matt Espinoza [facility]] Outpatient Specialists: Dr. Tobias ] Inpatient Consults: [BIS team: pleural effusion ] PROBLEM LIST: Acute hypoxemic respiratory failure Bilateral pleural effusions, R>L with recent right thoracentesis on 05/22/2025 with 1.8L, Exudative, pathology (+) adenocarcinoma Lung cancer on immunotherapy Acute RLE DVT Bilateral pneumonia, POA History of bladder thrombus History of Bladder CA PPM AICD in situ COPD, not on exacerbation Former smoker Hypothyroidism Chronic Swanson Octogenarian INTERVAL HISTORY: Patient assessed at bedside. AAOX3. Currently on 02@2LPM via NC. Complains of shortness of breath with exertion. CTA chest negative for PE but shows large right pleural effusion. Continues on heparin drip for RLE DVT. Patient states he has had two thoracentesis before. Explained that pathology from previous thoracentesis showed fluid positive for adenocarcinoma. Advised that tunneled catheter is recommended due to recurrent malignant pleural effusions. Explained risk and benefits of tunneled catheter insertion, patient has agreed to proceed. No family at bedside. 1:[address] Scruggs (radiologist) and Dr. Tobias PLAN: IR for right tunneled catheter due to recurrent malignant effusions Continue on IV Rocephin and Doxycyline Continue on IV Heparin drip for DVT Duoneb treatment I.S.q1H x 10 while awake Titrate oxygen to keep sats >92% Continue with telemetry Continue with Swanson REVIEW OF SYSTEMS: 12 point ROS reviewed with patient. Pertinent positives mentioned above. Otherwise negative. PHYSICAL EXAM: GENERAL: alert, weak, awake oriented x 3 on NC HEENT: EOMI, Sclera non icteric, moist mucosa NECK: Supple, no JVD, trachea midline LUNGS: Diminished breath sounds bilaterally. No wheezes HEART: Regular rate and rhythm. Normal S1 and S2, without murmurs ABD: Abdomen soft, nontender. Bowel sounds present EXT: No clubbing cyanosis or edema NEURO: AAOX3, follows commands Vital Signs (last 8hr) Date Time Temp Pulse Resp B/P (MAP) Pulse Ox O2 Delivery O2 Flow Rate FiO2 06/10/25 09:49 97 20 06/10/25 08:00 98.1 107 18 100/56 94 Room Air 06/10/25 06:31 100 21 N/Cannula Low lpm 3.0 32 06/10/25 06:29 100 20 06/10/25 04:00 97.9 104 20 105/48 99 Nasal Cannula 2.0 LABS: Hematology Labs: Test 06/10/25 06:09 06/09/25 11:47 Range/Units White Blood Count 7.6 4.8-10.8 K/uL Red Blood Count 3.71 L 4.50-6.20 MIL/uL Hemoglobin 10.8 L 14.0-18.0 g/dL Hematocrit 33.8 L 42-54 % Mean Corpuscular Volume 91.1 79-99 fL Mean Corpuscular Hemoglobin 29.1 27.0-33.0 pg Mean Corpuscular Hemoglobin Concent 32.0 32.0-36.0 g/dL Red Cell Distribution Width 17.2 H 11.0-15.5 % Platelet Count 170 130-400 K/uL Mean Platelet Volume 9.0 7.5-10.5 fL Nucleated Red Blood Cells 0.0 0.0-0.19 % Immature Granulocyte % (Auto) 0.4 0-1 % Neutrophils (%) (Auto) 61.4 40.0-77.0 % Lymphocytes (%) (Auto) 26.4 21.0-51.0 % Monocytes (%) (Auto) 5.9 3.0-13.0 % Eosinophils (%) (Auto) 5.5 0.0-8.0 % Basophils (%) (Auto) 0.4 0.0-5.0 % Neutrophils # (Auto) 4.7 1.8-7.7 K/uL Lymphocytes # (Auto) 2.0 1.0-4.8 K/uL Monocytes # (Auto) 0.5 0.1-1.0 K/uL Eosinophils # (Auto) 0.42 0.00-0.70 K/uL Basophils # (Auto) 0.03 0.00-0.20 K/uL Absolute Immature Granulocyte (auto 0.03 0-1 K/uL Chemistry Labs: Test 06/10/25 06:09 06/09/25 19:18 06/09/25 11:47 Range/Units Sodium Level 140 136-145 mmol/L Potassium Level 3.4 L 3.5-5.1 mmol/L Chloride Level 103 101-111 mmol/L Carbon Dioxide Level 28 21-32 mmol/L Blood Urea Nitrogen 7 7-18 mg/dL Creatinine 0.8 0.5-1.3 mg/dL Glomerular Filtration Rate Calc 85 >90 mL/min Random Glucose 142 H 70-105 mg/dL Lactic Acid Level 1.8 0.8-2.5 mmol/L Total Calcium 8.3 L 8.5-10.1 mg/dL Total Bilirubin 0.4 0.2-1.0 mg/dL Aspartate Amino Transf (AST/SGOT) 17 10-37 U/L Alanine Aminotransferase (ALT/SGPT) 11 L 12-78 U/L Alkaline Phosphatase 117 50-136 U/L Total Protein 5.6 L 6.0-8.3 g/dL Albumin 2.1 L 3.5-5.0 g/dL Procalcitonin < 0.05 L 0.05-0.5 ng/mL Whole Blood Glucose 140 H 70-110 MG/DL Troponin I High Sensitivity 15 4-75 ng/L B-Type Natriuretic Peptide 282 H 0-100 pg/mL Coagulation Labs: Test 06/10/25 06:09 06/09/25 18:08 Range/Units Prothrombin Time 11.3 9.6-11.6 SEC Prothromb Time International Ratio 1.07 0.85-1.15 Activated Partial Thromboplast Time > 139.0 #*H 26.3-35.5 SEC D-Dimer Quantitative (PE/DVT) 2995 *H 0-500 ng/mL DIAGNOSTICS / RADIOLOGY RESULTS: PROCEDURE: [facility] PE - CT CHEST PE PROTOCOL WWO CONT EXAM: CTA examination of the chest CLINICAL HISTORY: Elevated d-dimer. TECHNIQUE: Thin collimated axial CTA images of the chest without and with intravenous contrast were obtained with sagittal and coronal reformatted images also submitted. CT scan is done according to ALARA (As Low as Reasonably Achievable). COMPARISON: Prior CT chest dated 05/21/25. FINDINGS: No acute infiltrate or pulmonary mass. Multiple tiny nodules with tree-in-bud appearance in the dependent segment of the left lower lobe. Subsegmental atelectasis in the right middle lobe. Bilateral small subpleural scarring. Large right pleural effusion with partial collapse of the right lung. Mild left pleural effusion. No pericardial effusion. The heart size is within normal limits. Left-sided AICD device with tip of the lead in the right ventricle. Coronary artery calcifications. Atherosclerotic plaques and wall calcifications in the thoracic aorta with a stable metallic stent at the aortic root. No thoracic aortic aneurysm or dissection. No filling defect or pulmonary thromboembolism. No axillary, supraclavicular, or mediastinal lymphadenopathy. Enlarged thyroid gland with hypodense nodules. Limited views of the upper abdomen demonstrate a tiny left renal calculus. No acute or suspicious osseous abnormality. Multilevel syndesmophytes in the thoracic spine with fusion at the facet joints, suggesting changes of ankylosing spondylitis. Stable, well-circumscribed isodense lesion in the left posterior abdominal wall. IMPRESSION: No pulmonary arterial thromboembolism. Stable large right pleural effusion with partial collapse of the right lung. Mild left pleural effusion is a new finding. Stable multiple tiny nodules with tree in bud appearance in the dependent segment of the left lower lobe concerning an infective/inflammatory process. Atherosclerotic plaques and wall calcifications in the thoracic aorta with a stable metallic stent at the aortic root. /[place] PLAN NEURO: Minimize central acting medications as possible. Maintain fall precautions, adequate lighting during the day PULMONARY: Supplemental 02 as needed. Maintain aspiration precautions at all times CARDIOVASCULAR: Follow hemodynamics. Vital signs per facility protocol GI & NUTRITION: Continue with nutritional support. Continue stool softeners and laxatives as needed. KIDNEYS & ELECTROLYTES: Strict monitoring of intake, output and overall fluid balance. Avoid nephrotoxic medications to the extent possible. Medications to be dosed according to renal function. Monitor electrolytes and replace as needed ENDOCRINE: Maintain blood glucose between 100-180 at all times. Hypoglycemia protocol in place INFECTIOUS DISEASE: Trend temperature, WBC and procalcitonin level Follow cultures, deescalate antibiotics as soon as possible. Panculture if new onset fever ONCOLOGY/HEMATOLOGY/COAGULATION: Monitor for s/s of bleeding Monitor hemoglobin, coagulation studies as needed SKIN: Pressure ulcer prevention per facility protocol Specialty mattress ORTHO/REHAB: Continue PT/OT Prophylaxis: Continue GI and DVT prophylaxis Code Status: Full Resuscitation Disposition: per primary team A total of 35 minutes spent for direct patient care including chart review, conversation with patient and/ or family, consultation, and discussion with staff, not including procedures. VICENTA CRUIEL NP Jun 10, 2025 11:12
--- NOTE | 2025-06-10 11:34 | HP ---
ADMISSION HISTORY AND PHYSICAL LOCATION: 332. ADMITTING DIAGNOSIS: Recurrent pleural effusion and respiratory failure. HISTORY OF PRESENT ILLNESS: An 89-year-old man with stage IV lung cancer, on immunotherapy with Opdivo and Yervoy. He has had a chronic malignant right pleural effusion. He came into the ER with increasing shortness of breath. He has had no fever or cough, but seen and examined, admitted for antibiotics, respiratory support and was also found in the ER to have a DVT. PAST MEDICAL HISTORY: History of lung cancer as noted above, history of previous pleural effusion, history of remote bladder cancer, hyperlipidemia, COPD, thyroid disease, hypertension. t PAST SURGICAL HISTORY: He has had bladder surgery, thoracentesis, heart cath, AICD device. MEDICATIONS: See intake sheet. ALLERGIES: None known. FAMILY HISTORY: Negative for lung cancer. SOCIAL HISTORY: Single. Lives in a snf. Does not smoke or drink now. REVIEW OF SYSTEMS: CONSTITUTIONAL: He is short of breath. HEENT: No blurred vision. CARDIOVASCULAR: Short of breath. PULMONARY: Negative for cough, hemoptysis. GASTROINTESTINAL: Negative . GENITOURINARY: Negative for hematuria or dysuria. PHYSICAL EXAMINATION: GENERAL: Elderly, very pleasant man. VITAL SIGNS: Blood pressure 105/50, pulse 101, respirations 20. HEENT: Benign. CHEST: Showed decreased breath sounds and dullness of the right chest. HEART: Regular rate and rhythm. ABDOMEN: Soft. EXTREMITIES: Show no edema. LABORATORY DATA: CBC: WBC 7.6, hemoglobin 10, platelets 179,000. Chemistries unremarkable except for potassium 3.4. His imaging, CT chest shows a right pleural effusion and some metastatic nodules. IMPRESSION: * Acute hypoxic respiratory failure. * Recurrent malignant pleural effusion. * DVT of lower extremity. * Lung cancer. * Bladder cancer, pacemaker, COPD, thyroid disease, Swanson, hypertension. PLAN: Culture, broad spectrum antibiotics, proceed with a heparin drip for the DVT, rule out PE, DuoNeb treatment, arrange for thoracentesis once he is more stable. Oxygen as needed. We will consult [facility]. TID: [id number] RECEIPT: [id number]
[2025-06-10 14:07] LABS: INR 1.08 (0.85-1.15)
[2025-06-10 20:04] LABS: INR 1.08 (0.85-1.15)
[2025-06-11] VITALS (26 sets, daily range): BP systolic 89–113; BP diastolic 48–64; PULSE 80–107; RESP 18–22; TEMP 97.5–97.9; O2SAT 95–98
[2025-06-11 05:21] LABS: NUCLEATED RED BLOOD CELLS 0.0 % (0.0-0.19); PLATELET COUNT (AUTO) 153.0 K/uL (130-400); RED BLOOD CELL COUNT(AUTO) 3.52 MIL/uL (4.50-6.20); RED CELL DISTRIBUTION WIDTH 17.3 % (11.0-15.5); WHITE BLOOD COUNT (AUTO) 8.1 K/uL (4.8-10.8)
[2025-06-11 05:33] LABS: CREATININE 0.6 mg/dL (0.5-1.3); GLOMERULAR FILTR. RATE CALC 93.0 mL/min (>90); GLUCOSE,RANDOM 145.0 mg/dL (70-105); SODIUM SERUM 140.0 mmol/L (136-145); UREA NITROGEN, BLOOD 7.0 mg/dL (7-18)
[2025-06-11] MEDS ORDERED: IOHEXOL-350 50ML VIAL IV ONE (07:12)
[2025-06-11] MEDS ORDERED: LIDOCAINE HCL 400MG/20ML VIAL ONE ×2 (07:12→08:11)
[2025-06-11] MEDS ORDERED: HEParin-NS 1,000 UNIT/500 ML 500 ML IV ONE (07:15)
[2025-06-11] MEDS ORDERED: MAGNESIUM 2GM PREMIX 50ML 50 ML IV SCH (07:30)
[2025-06-11] MEDS ORDERED: MIDAZOLAM HCL 1 MG/ML 2ML VIAL ONE (07:48)
--- NOTE | 2025-06-11 09:05 | PN ---
LOCATION: 332. SUBJECTIVE: The patient is going for a chest tube today. He has a malignant pleural effusion. He has verbalized yesterday that he wants to be DNR in the event of a cardiopulmonary arrest that is totally appropriate. PHYSICAL EXAMINATION: VITAL SIGNS: Stable. CHEST: Clear. ABDOMEN: Soft. EXTREMITIES: Show no edema. NEUROLOGIC: Intact. IMPRESSION: * Acute hypoxic respiratory failure, improved. * Bilateral pleural effusions. * Adenocarcinoma of the lung. * Right leg DVT. * Bilateral pneumonia. * Bladder cancer. * AICD device. * COPD, smoker. * Hypothyroidism. * Swanson. PLAN: Proceed with the catheter today. He signed DNR papers which make formal in the hospital. Further recommendations to follow. TID: [id number] RECEIPT: [id number]
[2025-06-11 09:27] LABS: INR 1.07 (0.85-1.15)
--- NOTE | 2025-06-11 11:16 | PN ---
[facility] PROGRESS NOTE Date Patient Seen: Jun 11, 2025 Time of Visit: 11:11 Supervising Physician: Dr. Matt Espinoza [facility] Outpatient Specialists: Dr. Tobias ] Inpatient Consults: [BIS team: pleural effusion ] PROBLEM LIST: Acute hypoxemic respiratory failure Bilateral pleural effusions, R>L with recent right thoracentesis on 05/22/2025 with 1.8L, Exudative, pathology (+) adenocarcinoma S/P right tunneled catheter insertion by IR on 06/11/25 Lung cancer on immunotherapy Acute RLE DVT Bilateral pneumonia, POA History of bladder thrombus History of Bladder CA PPM AICD in situ COPD, not on exacerbation Former smoker Hypothyroidism Chronic Swanson Octogenarian INTERVAL HISTORY: Patient assessed at bedside. AAOX3. Currently on 02@2LPM via [place]. States shortness of breath has improved. S/P tunneled catheter insertion by IR today. Tolerated well. Drained 1.5L via suction bottle system, assisted by Yandel, radiology team. Patient tolerated well. Complained of cough which is expected. Repeat CXR after 1.5L of fluid removal showed resolution of right pleural effusion. Continue on heparin drip, monitor for bleeding. No family at bedside. PLAN: AM CXR Pleural fluid sent for analysis CM to assist for home health to assist patient in removing fluid at home Drain 1.5 liters per day as tolerated Continue on IV Rocephin and Doxycycline Continue on IV Heparin drip for DVT, will transition to oral Eliquis on 06/12/2025 Duoneb treatment I.S.q1H x 10 while awake Titrate oxygen to keep sats >92% Continue with telemetry Continue with Sky REVIEW OF SYSTEMS: 12 point ROS reviewed with patient. Pertinent positives mentioned above. Otherwise negative. PHYSICAL EXAM: GENERAL: alert, weak, awake oriented x 3 on NC HEENT: EOMI, Sclera non icteric, moist mucosa NECK: Supple, no JVD, trachea midline LUNGS: Diminished breath sounds bilaterally. No wheezes HEART: Regular rate and rhythm. Normal S1 and S2, without murmurs ABD: Abdomen soft, nontender. Bowel sounds present EXT: No clubbing cyanosis or edema NEURO: AAOX3, follows commands Vital Signs (last 8hr) Date Time Temp Pulse Resp B/P (MAP) Pulse Ox O2 Delivery O2 Flow Rate FiO2 06/11/25 10:48 99 20 06/11/25 09:45 94 18 91/48 97 Nasal Cannula 2.0 06/11/25 09:30 93 18 92/55 97 Nasal Cannula 2.0 06/11/25 09:15 93 18 91/51 97 Nasal Cannula 2.0 06/11/25 09:00 92 18 103/59 97 Nasal Cannula 2.0 06/11/25 08:50 97.9 92 18 113/63 97 Nasal Cannula 2.0 06/11/25 07:34 97.5 105 18 92/53 100 Nasal Cannula 3.0 06/11/25 06:40 102 20 N/Cannula Low lpm 3.0 32 06/11/25 06:37 103 22 06/11/25 04:00 97.5 107 18 104/63 93 Nasal Cannula 3.0 LABS: Hematology Labs: Test 06/11/25 04:45 06/09/25 11:47 Range/Units White Blood Count 8.1 4.8-10.8 K/uL Red Blood Count 3.52 L 4.50-6.20 MIL/uL Hemoglobin 10.1 L 14.0-18.0 g/dL Hematocrit 31.5 L 42-54 % Mean Corpuscular Volume 89.5 79-99 fL Mean Corpuscular Hemoglobin 28.7 27.0-33.0 pg Mean Corpuscular Hemoglobin Concent 32.1 32.0-36.0 g/dL Red Cell Distribution Width 17.3 H 11.0-15.5 % Platelet Count 153 130-400 K/uL Mean Platelet Volume 9.4 7.5-10.5 fL Nucleated Red Blood Cells 0.0 0.0-0.19 % Immature Granulocyte % (Auto) 0.4 0-1 % Neutrophils (%) (Auto) 61.4 40.0-77.0 % Lymphocytes (%) (Auto) 26.4 21.0-51.0 % Monocytes (%) (Auto) 5.9 3.0-13.0 % Eosinophils (%) (Auto) 5.5 0.0-8.0 % Basophils (%) (Auto) 0.4 0.0-5.0 % Neutrophils # (Auto) 4.7 1.8-7.7 K/uL Lymphocytes # (Auto) 2.0 1.0-4.8 K/uL Monocytes # (Auto) 0.5 0.1-1.0 K/uL Eosinophils # (Auto) 0.42 0.00-0.70 K/uL Basophils # (Auto) 0.03 0.00-0.20 K/uL Absolute Immature Granulocyte (auto 0.03 0-1 K/uL Chemistry Labs: Test 06/11/25 04:45 06/10/25 06:09 06/09/25 19:18 06/09/25 11:47 Range/Units Sodium Level 140 136-145 mmol/L Potassium Level 3.9 3.5-5.1 mmol/L Chloride Level 103 101-111 mmol/L Carbon Dioxide Level 31 21-32 mmol/L Blood Urea Nitrogen 7 7-18 mg/dL Creatinine 0.6 0.5-1.3 mg/dL Glomerular Filtration Rate Calc 93 >90 mL/min Random Glucose 145 H 70-105 mg/dL Total Calcium 8.5 8.5-10.1 mg/dL Magnesium Level 1.60 L 1.80-2.40 mg/dL Lactic Acid Level 1.8 0.8-2.5 mmol/L Total Bilirubin 0.4 0.2-1.0 mg/dL Aspartate Amino Transf (AST/SGOT) 17 10-37 U/L Alanine Aminotransferase (ALT/SGPT) 11 L 12-78 U/L Alkaline Phosphatase 117 50-136 U/L Total Protein 5.6 L 6.0-8.3 g/dL Albumin 2.1 L 3.5-5.0 g/dL Procalcitonin < 0.05 L 0.05-0.5 ng/mL Whole Blood Glucose 140 H 70-110 MG/DL Troponin I High Sensitivity 15 4-75 ng/L B-Type Natriuretic Peptide 282 H 0-100 pg/mL Coagulation Labs: Test 06/11/25 09:11 06/09/25 18:08 Range/Units Prothrombin Time 11.3 9.6-11.6 SEC Prothromb Time International Ratio 1.07 0.85-1.15 Activated Partial Thromboplast Time 29.3 # 26.3-35.5 SEC D-Dimer Quantitative (PE/DVT) 2995 *H 0-500 ng/mL DIAGNOSTICS / RADIOLOGY RESULTS: [ ] PLAN NEURO: Minimize central acting medications as possible. Maintain fall precautions, adequate lighting during the day PULMONARY: Supplemental 02 as needed. Maintain aspiration precautions at all times CARDIOVASCULAR: Follow hemodynamics. Vital signs per facility protocol GI & NUTRITION: Continue with nutritional support. Continue stool softeners and laxatives as needed. KIDNEYS & ELECTROLYTES: Strict monitoring of intake, output and overall fluid balance. Avoid nephrotoxic medications to the extent possible. Medications to be dosed according to renal function. Monitor electrolytes and replace as needed ENDOCRINE: Maintain blood glucose between 100-180 at all times. Hypoglycemia protocol in place INFECTIOUS DISEASE: Trend temperature, WBC and procalcitonin level Follow cultures, deescalate antibiotics as soon as possible. Panculture if new onset fever ONCOLOGY/HEMATOLOGY/COAGULATION: Monitor for s/s of bleeding Monitor hemoglobin, coagulation studies as needed SKIN: Pressure ulcer prevention per facility protocol Specialty mattress ORTHO/REHAB: Continue PT/OT Prophylaxis: Continue GI and DVT prophylaxis Code Status: Full Resuscitation Disposition: per primary team A total of 35 minutes spent for direct patient care including chart review, conversation with patient and/ or family, consultation, and discussion with staff, not including procedures. VICENTA CURIEL CLAIMS ADJUSTER CROP Jun 11, 2025 11:16
--- NOTE | 2025-06-11 11:49 | CCATH ---
PROCEDURE: Placement of a right-sided pleural drainage catheter. CLINICAL HISTORY: Malignant pleural effusion for placement of indwelling catheter. The risks and benefits were explained to the patient. DESCRIPTION OF PROCEDURE: Under ultrasound guidance, the right lateral mid-axillary approach pleural effusion pocket was localized. After 1% Xylocaine was used for local anesthetic, an 18-gauge needle was placed under ultrasound guidance. An angiographic wire was introduced. Inferior to it about 6 cm, tunneling was performed with a large amount of lidocaine for dissection. ASEPT drainage catheter was tunneled and placed into the left lower chest tip under fluoroscopy guidance. The catheter was anchored at the tunneling site and also at the insertion site. The catheter appears to be in satisfactory position. This is amenable for thoracentesis p.r.n. TID: [id number] RECEIPT: [id number] ANNETTED
--- NOTE | 2025-06-11 14:17 | NUR ---
S/P BRIAN CATHETER/ TUNNELED / INTO MALIGNANT PLEURAL EFFUSION- WITH DAILY DRAIN ORDERS BY BIS- CALL PLACED TO STACY AT [facility]. STATES THAT THEY ARE FINE TO RECIEVE PATIENT WITH CATHETER IN PLACE [facility] IS SET UP FOR THEM CALL TO DR. GO OFFICE- HE STATES HE WOULD HAVE THE CRIMINOLOGY PROFESSOR AT HIS OFFICE SET UP THE HOME HEALTH. CGAVE DR. PARSONS [facility] NUMBER [phone] SO SW CAN CALL WITH NAME OF HOME HEALTH [place] [facility] [place] [facility] RE[place] ON DISCHARGE ADVISED DDR. PARSONS WE WOULD SET UP EMS FOR DISCHARGE WHEN PATIENT READY FOR DC BACK TO [facility]
--- NOTE | 2025-06-11 15:47 | HMCIMG ---
EXAM: CR Chest, 1 View. CLINICAL HISTORY: STATUS POST THORACENTESIS COMPARISON: Radiograph dated June 09, 2025 FINDINGS: Interval improved duration throughout the right lung, and decreased trace right pleural effusion. No pneumothorax. The left lung remains clear. AICD leads overlie the right ventricle. Heart size and pulmonary vessels are within normal limits. Aortic stent noted. IMPRESSION: 1. Interval right thoracentesis with significantly improved duration throughoutthe right lung, and decreased trace right pleural effusion. No pneumothorax. /[place]
[2025-06-11 16:38] LABS: GLUCOSE PLEURAL FLUID 149; PROTEIN PLEURAL FLUID 3.4 mg/dL
[2025-06-11 16:46] LABS: BODY FLUID RBC 1188 /cu. mm.; BODY FLUID WBC 410 /cu. mm.
--- NOTE | 2025-06-11 17:21 | NUR ---
Discharge Update: Received call from Dr. Tobias saying that home health for the patient has been set up at his office. To please call Chito at for the home health number for the nurse to give report. Cihto is not there. Spoke to Felix and states name of home health is [facility]. Number to call report is . Documented in nursing communications.
[2025-06-11 17:33] LABS: APPEARANCE BODY FLUID SLIGHTLY CLOUDY (CLEAR); COLOR,BODY FLUID YELLOW (LT YELLOW); SPECIMENTYPE,BODY FLUID PLEURAL; TOTAL VOLUME,BODY FLUID 1475 mL
[2025-06-11 17:35] LABS: PH PLEURAL FLUID 7.5
[2025-06-11 17:46] LABS: BF EOSINOPHIL 12 %; BF LYMPHOCYTE 19 %; BF MESOTHELIAL 5 %; BF NEUTROPHIL 64.0 %; BF TOTAL CELLS COUNTED 100
[2025-06-11] MEDS: MAGNESIUM 2GM PREMIX 50ML 50 ML IV PRN (18:00)
--- NOTE | 2025-06-11 19:00 | NUR ---
DISCHARGE ORDER RECEIVED FOR PATIENT FROM DR. PARSONS VIA TELEPHONE. PER PHARMACY RESIDENT NOTES, PATIENT SET UP WITH [facility]. SPOKE WITH PATIENT POA, CELESTINO GARCIA WHO EXPRESSED CONCERNS REGARDING PATIENT DISCHARGE PLAN. PER POA, NO CONTACT WAS MADE REGARDING DISCHARGE PLAN. PER POA, PATIENT IS TO RETURN TO [facility], NOT HOME WITH HOME HEALTH. MEDICALLY, PATIENT IS ON HEPARIN WITH NO ORDERS FOR ANTICOAGULANT MEDICATION UPON DISCHARGE. PATIENT HAS BRIAN CATHETER IN PLACE WITH NO ORDERS FOR ITS USE UPON DISCHARGE. DISCHARGE HELD UNTIL CLARIFICATION REGARDING MEDICAL AND PLACEMENT PLANS CAN BE OBTAINED TOMORROW.
--- NOTE | 2025-06-11 23:20 | NUR ---
CALL PLACED TO EARLY CHILDHOOD DIRECTOR PROVIDER, SPOKE WITH Abhishek KURTZ VACUUM CLEANER REPAIR PERSON MADE AWARE PT COMPLAINING OF PAIN HAS NO PAIN MEDICATION AVAILABLE. NEW ORDERS GIVEN FOR PRN PAIN MEDICATION AND CARRIED OUT.
[2025-06-12] VITALS (16 sets, daily range): BP systolic 91–113; BP diastolic 47–62; PULSE 59–103; RESP 16–24; TEMP 97.4–98.6; O2SAT 96–99
--- NOTE | 2025-06-12 08:39 | NUR ---
A.M. DOSE OF LASIX HELD IN DUE TO HYPOTENSION. CURRENT BLOOD PRESSURE 91/47
--- NOTE | 2025-06-12 09:49 | PN ---
LOCATION: [facility]. SUBJECTIVE: The patient did well overnight, got his chest tube. He is awake, alert and he is doing well. He has been converted from heparin to Lovenox. PHYSICAL EXAMINATION: GENERAL: Shows elderly man. VITAL SIGNS: Blood pressure ____, respirations 20. CHEST: Clear. ABDOMEN: Soft. EXTREMITIES: Show no edema. NEUROLOGIC: Intact. IMPRESSION: * Malignant pleural effusion status post chest tube. * Acute hypoxic respiratory failure, resolved. * Chronic O2 at home. * DVT of lower extremity. * Bilateral pneumonia. * Bladder cancer. * Lung cancer. * COPD. * Hypothyroidism. PLAN: The patient could be discharged home. I have already set up on my own home health, oxygen and Eliquis. He will continue to drain the chest tube at home. TID: [id number] RECEIPT: [id number]
--- NOTE | 2025-06-12 09:51 | HMCIMG ---
CHEST 1VW REASON: pleural effusion COMPARISON: Study from 06/11/2025 is available. FINDINGS: Single view of the chest was obtained. Lungs are clear. There is hyperaeration of lungs suggesting of chronic obstructive pulmonary disease. There is small right-sided pleural effusion. Cardiac silhouette has transverse lie. There is a left-sided AICD with lead in right ventricle. There is no pulmonary vascular congestion. Mediastinum and bony thorax appear unremarkable. There is anterior cervical disc fusion with orthopedic plates seen at the edges study. IMPRESSION: 1. Small right-sided pleural effusion 2. No evidence of airspace consolidation or pulmonary venous congestion..
--- NOTE | 2025-06-12 11:22 | PN ---
[facility] PROGRESS NOTE Date Patient Seen: Jun 12, 2025 Time of Visit: 11:22 Supervising Physician: [ ] [facility] Outpatient Specialists: Dr. Tobias ] Inpatient Consults: [BIS team: pleural effusion ] PROBLEM LIST: Acute hypoxemic respiratory failure Bilateral pleural effusions, R>L with recent right thoracentesis on 05/22/2025 with 1.8L, Exudative, pathology (+) adenocarcinoma S/P right tunneled catheter insertion by IR on 06/11/25 Lung cancer on immunotherapy Acute RLE DVT Bilateral pneumonia, POA History of bladder thrombus History of Bladder CA PPM AICD in situ COPD, not on exacerbation Former smoker Hypothyroidism Chronic Swanson Octogenarian INTERVAL HISTORY: PLAN: AM CXR Pleural fluid sent for analysis CM to assist for home health to assist patient in removing fluid at home Drain 1.5 liters per day as tolerated Continue on IV Rocephin and Doxycycline Continue on IV Heparin drip for DVT, will transition to oral Eliquis on 06/12/2025 Duoneb treatment I.S.q1H x 10 while awake Titrate oxygen to keep sats >92% Continue with telemetry Continue with Swanson REVIEW OF SYSTEMS: 12 point ROS reviewed with patient. Pertinent positives mentioned above. Otherwise negative. PHYSICAL EXAM: GENERAL: alert, weak, awake oriented x 3 on NC HEENT: EOMI, Sclera non icteric, moist mucosa NECK: Supple, no JVD, trachea midline LUNGS: Diminished breath sounds bilaterally. No wheezes HEART: Regular rate and rhythm. Normal S1 and S2, without murmurs ABD: Abdomen soft, nontender. Bowel sounds present EXT: No clubbing cyanosis or edema NEURO: AAOX3, follows commands Vital Signs (last 8hr) Date Time Temp Pulse Resp B/P (MAP) Pulse Ox O2 Delivery O2 Flow Rate FiO2 06/12/25 11:14 97.9 97 18 99/62 93 Nasal Cannula 2.0 06/12/25 10:40 102 20 06/12/25 08:50 96 Nasal Cannula* 2 06/12/25 07:57 97.3 101 18 91/47 96 Nasal Cannula 2.0 06/12/25 06:43 101 20 N/Cannula Low lpm 2.0 06/12/25 06:40 101 20 06/12/25 04:00 97.5 101 17 100/52 93 Nasal Cannula 3.0 LABS: Hematology Labs: Test 06/11/25 04:45 Range/Units White Blood Count 8.1 4.8-10.8 K/uL Red Blood Count 3.52 L 4.50-6.20 MIL/uL Hemoglobin 10.1 L 14.0-18.0 g/dL Hematocrit 31.5 L 42-54 % Mean Corpuscular Volume 89.5 79-99 fL Mean Corpuscular Hemoglobin 28.7 27.0-33.0 pg Mean Corpuscular Hemoglobin Concent 32.1 32.0-36.0 g/dL Red Cell Distribution Width 17.3 H 11.0-15.5 % Platelet Count 153 130-400 K/uL Mean Platelet Volume 9.4 7.5-10.5 fL Nucleated Red Blood Cells 0.0 0.0-0.19 % Chemistry Labs: Test 06/12/25 10:19 06/11/25 04:48 06/11/25 04:45 Range/Units Whole Blood Glucose 146 H 70-110 MG/DL Lactate Dehydrogenase 354 H 81-234 U/L Sodium Level 140 136-145 mmol/L Potassium Level 3.9 3.5-5.1 mmol/L Chloride Level 103 101-111 mmol/L Carbon Dioxide Level 31 21-32 mmol/L Blood Urea Nitrogen 7 7-18 mg/dL Creatinine 0.6 0.5-1.3 mg/dL Glomerular Filtration Rate Calc 93 >90 mL/min Random Glucose 145 H 70-105 mg/dL Total Calcium 8.5 8.5-10.1 mg/dL Magnesium Level 1.60 L 1.80-2.40 mg/dL Coagulation Labs: Test 06/12/25 06:22 06/11/25 09:11 Range/Units Activated Partial Thromboplast Time 30.1 # 26.3-35.5 SEC Prothrombin Time 11.3 9.6-11.6 SEC Prothromb Time International Ratio 1.07 0.85-1.15 DIAGNOSTICS / RADIOLOGY RESULTS: [ ] PLAN NEURO: Minimize central acting medications as possible. Maintain fall precautions, adequate lighting during the day PULMONARY: Supplemental 02 as needed. Maintain aspiration precautions at all times CARDIOVASCULAR: Follow hemodynamics. Vital signs per facility protocol GI & NUTRITION: Continue with nutritional support. Continue stool softeners and laxatives as needed. KIDNEYS & ELECTROLYTES: Strict monitoring of intake, output and overall fluid balance. Avoid nephrotoxic medications to the extent possible. Medications to be dosed according to renal function. Monitor electrolytes and replace as needed ENDOCRINE: Maintain blood glucose between 100-180 at all times. Hypoglycemia protocol in place INFECTIOUS DISEASE: Trend temperature, WBC and procalcitonin level Follow cultures, deescalate antibiotics as soon as possible. Panculture if new onset fever ONCOLOGY/HEMATOLOGY/COAGULATION: Monitor for s/s of bleeding Monitor hemoglobin, coagulation studies as needed SKIN: Pressure ulcer prevention per facility protocol Specialty mattress ORTHO/REHAB: Continue PT/OT Prophylaxis: Continue GI and DVT prophylaxis Code Status: Full Resuscitation Disposition: per primary team A total of 35 minutes spent for direct patient care including chart review, conversation with patient and/ or family, consultation, and discussion with staff, not including procedures. VICENTA CURIEL NP Jun 12, 2025 11:22
--- NOTE | 2025-06-12 13:00 | HMCIMG ---
Ultrasound guidance Ultrasound guidance for placement of a right-sided indwelling catheter.. The details of the findings and procedural report.. Impression: Ultrasound guidance.
--- NOTE | 2025-06-12 15:58 | NUR ---
RECEIVED CALL FROM DR. PARSONS. PER DR. PARSONS, PATIENT [facility]ILY [facility]. PER DR. PARSONS, CASE MANAGEMENT IS TO BE NOTIFIED SO THE [facility] COULD [facility]. NOTIFIED KELLY MERCURY CRACKING TESTER, REGARDING DR. PARSONS ORDER.
--- NOTE | 2025-06-12 18:43 | NUR ---
Discharge Planning: New order for Home Health via [place]. PCP office originally set up through [facility]. Pending [facility] and [facility] supplies set-up. Tonia sent original referral to Silvia at [place]. Form for Dr. Tobias to sign flagged and in patient's chart.
--- NOTE | 2025-06-12 18:48 | NUR ---
Discharge Update: Correction: Forms have not yet been sent to Silvia at [place]. Pending Dr. Tobias's signature of form left flagged in front of chart.
[2025-06-13] VITALS (14 sets, daily range): BP systolic 94–116; BP diastolic 50–66; PULSE 92–107; RESP 17–24; TEMP 97.2–97.6; O2SAT 94–100
--- NOTE | 2025-06-13 08:22 | PN ---
LOCATION: [facility]. SUBJECTIVE: I had the patient set up for home health and home care today; however, the son-in-law called and canceled that, wants [facility] under [facility]. We therefore reached out to the [facility] to have them help us. PHYSICAL EXAMINATION: GENERAL: Shows an elderly man who is quite comfortable. VITAL SIGNS: Blood pressure 104/54, pulse 93, respirations 20. CHEST: Clear. chest tube in the right chest. ABDOMEN: Soft. IMPRESSION: * Malignant pleural effusion, recurrent. * Lung cancer, on immunotherapy. * Acute hypoxic respiratory failure. * DVT of the lower extremity. * Bilateral pneumonia. * Bladder cancer. * Chronic obstructive pulmonary disease. * Pacemaker device. * Hypothyroidism. * Swanson. PLAN: The patient is stable to go home; however, we have to wait for the [facility] to help us and we will reach out to the [facility] personally to see if they can set up everything up at home. He is already in a fci where he has oxygen. He is on oral anticoagulation. TID: [id number] RECEIPT: [id number]
--- NOTE | 2025-06-13 11:29 | PN ---
[facility] PROGRESS NOTE Date Patient Seen: Jun 13, 2025 Time of Visit: 11:29 Supervising Physician: Dr. Luigi Martinez [facility] Outpatient Specialists: Dr. Tobias ] Inpatient Consults: [BIS team: pleural effusion ] PROBLEM LIST: Acute hypoxemic respiratory failure Bilateral pleural effusions, R>L with recent right thoracentesis on 05/22/2025 with 1.8L, Exudative, pathology (+) adenocarcinoma S/P right tunneled catheter insertion by IR on 06/11/25 with drainage of 1.5L on 06/11/25 Lung cancer on immunotherapy Acute RLE DVT Bilateral pneumonia, POA History of bladder thrombus History of Bladder CA PPM AICD in situ COPD, not on exacerbation Former smoker Hypothyroidism Chronic Swanson Octogenarian INTERVAL HISTORY: Patient assessed at bedside. AAOX3. Currently on 02@2LPM via [place]. States he feels better overall. Will repeat CXR in AM, if right pleural effusion is present, will drain. Dr. Martinez signed form to arrange supplies for TPC. Continues on Eliquis, no s/s of bleeding noted. PLAN: AM CXR, will drain TPC if right pleural effusion is present Pleural fluid sent for analysis CM to assist for home health to assist patient in removing fluid at home Drain 1.5 liters per day or every other day as tolerated Continue on IV Rocephin and Doxycycline Transitioned to oral Eliquis on 06/12/2025 Duoneb treatment I.S.q1H x 10 while awake Titrate oxygen to keep sats >92% Continue with telemetry Continue with Swanson REVIEW OF SYSTEMS: 12 point ROS reviewed with patient. Pertinent positives mentioned above. Otherwise negative. PHYSICAL EXAM: GENERAL: alert, weak, awake oriented x 3 on NC HEENT: EOMI, Sclera non icteric, moist mucosa NECK: Supple, no JVD, trachea midline LUNGS: Diminished breath sounds bilaterally. No wheezes HEART: Regular rate and rhythm. Normal S1 and S2, without murmurs ABD: Abdomen soft, nontender. Bowel sounds present EXT: No clubbing cyanosis or edema NEURO: AAOX3, follows commands Vital Signs (last 8hr) Date Time Temp Pulse Resp B/P (MAP) Pulse Ox O2 Delivery O2 Flow Rate FiO2 06/13/25 11:03 18 N/Cannula Low lpm 3.0 32 06/13/25 11:02 95 18 06/13/25 08:00 97.3 100 19 116/66 100 Nasal Cannula 3.0 06/13/25 06:59 98 18 06/13/25 06:58 18 N/Cannula Low lpm 3.0 32 06/13/25 03:58 97.3 93 20 104/54 96 Nasal Cannula 2.0 LABS: Chemistry Labs: Test 06/13/25 11:10 06/12/25 12:20 Range/Units Whole Blood Glucose 117 H 70-110 MG/DL Magnesium Level 1.90 1.80-2.40 mg/dL Coagulation Labs: Test 06/12/25 12:20 Range/Units Activated Partial Thromboplast Time 139.0 #*H 26.3-35.5 SEC DIAGNOSTICS / RADIOLOGY RESULTS: [ ] PLAN NEURO: Minimize central acting medications as possible. Maintain fall precautions, adequate lighting during the day PULMONARY: Supplemental 02 as needed. Maintain aspiration precautions at all times CARDIOVASCULAR: Follow hemodynamics. Vital signs per facility protocol GI & NUTRITION: Continue with nutritional support. Continue stool softeners and laxatives as needed. KIDNEYS & ELECTROLYTES: Strict monitoring of intake, output and overall fluid balance. Avoid nephrotoxic medications to the extent possible. Medications to be dosed according to renal function. Monitor electrolytes and replace as needed ENDOCRINE: Maintain blood glucose between 100-180 at all times. Hypoglycemia protocol in place INFECTIOUS DISEASE: Trend temperature, WBC and procalcitonin level Follow cultures, deescalate antibiotics as soon as possible. Panculture if new onset fever ONCOLOGY/HEMATOLOGY/COAGULATION: Monitor for s/s of bleeding Monitor hemoglobin, coagulation studies as needed SKIN: Pressure ulcer prevention per facility protocol Specialty mattress ORTHO/REHAB: Continue PT/OT Prophylaxis: Continue GI and DVT prophylaxis Code Status: Full Resuscitation Disposition: per primary team VICENTA CURIEL NP Jun 13, 2025 11:29
--- NOTE | 2025-06-13 19:09 | NUR ---
CM NOTE/HOME HEALTH CM spoke to patient regarding d/c planning. Aware of MD recommendations for nursing to assist with andrei cath every other day. CM explained that [facility] can take at least two business days for home health arrangements. Patient verbalized understanding. CM obtained [facility] for any accepting home health and DME agency for the Andrei cath supplies. CM faxed request for home health and supplies to [place]. Patient states he is from [place] and is w[place]c bound. Reports they usually transport. CM to f/u. Addendum: 06/13/25 at 1916 by MINDY MCCOY CM Amended: Links added.
[2025-06-14] VITALS (14 sets, daily range): BP systolic 93–113; BP diastolic 48–58; PULSE 96–111; RESP 16–20; TEMP 97.4–98.3; O2SAT 96–98
[2025-06-14 06:23] LABS: NUCLEATED RED BLOOD CELLS 0.0 % (0.0-0.19); PLATELET COUNT (AUTO) 136.0 K/uL (130-400); RED BLOOD CELL COUNT(AUTO) 3.59 MIL/uL (4.50-6.20); RED CELL DISTRIBUTION WIDTH 17.4 % (11.0-15.5); WHITE BLOOD COUNT (AUTO) 7.5 K/uL (4.8-10.8)
[2025-06-14 06:46] LABS: ASPARTATE AMINOTRANSFERASE 15.0 U/L (10-37); CREATININE 0.6 mg/dL (0.5-1.3); GLOMERULAR FILTR. RATE CALC 93.0 mL/min (>90); GLUCOSE,RANDOM 124.0 mg/dL (70-105); SODIUM SERUM 139.0 mmol/L (136-145); TOTAL PROTEIN, SERUM 5.4 g/dL (6.0-8.3); UREA NITROGEN, BLOOD 9.0 mg/dL (7-18)
--- NOTE | 2025-06-14 07:25 | HMCIMG ---
EXAM: XR Chest, 1 View. CLINICAL HISTORY: 89 year old male with pleural effusion. COMPARISON: XR Chest dated 06/12/25. FINDINGS: LUNGS: Stable right basilar opacity which may be due to atelectasis or infiltrate. PLEURAL SPACES: Stable small right pleural effusion. No left-sided effusion. HEART: There is a left-sided cardiac pacemaker. The heart is stable in size. BONES: No acute osseous abnormality. IMPRESSION: Stable exam. /[place]
[2025-06-14] MEDS ORDERED: MAGNESIUM 2GM PREMIX 50ML 50 ML IV SCH (09:00)
--- NOTE | 2025-06-14 11:23 | PN ---
[facility] PROGRESS NOTE Date Patient Seen: Jun 14, 2025 Time of Visit: 11:23 Supervising Physician: Dr. Luigi Martinez [facility] Outpatient Specialists: Dr. Tobias ] Inpatient Consults: [BIS team: pleural effusion ] PROBLEM LIST: Acute hypoxemic respiratory failure Bilateral pleural effusions, R>L with recent right thoracentesis on 05/22/2025 with 1.8L, Exudative, pathology (+) adenocarcinoma S/P right tunneled catheter insertion by IR on 06/11/25 with drainage of 1.5L on 06/11/25 Lung cancer on immunotherapy Acute RLE DVT Bilateral pneumonia, POA History of bladder thrombus History of Bladder CA PPM AICD in situ COPD, not on exacerbation Former smoker Hypothyroidism Chronic Swanson Octogenarian INTERVAL HISTORY: Patient assessed at bedside. AAOX3. Currently on 02@2LPM via [place]. States he feels better overall. CXR today shows small pleural effusion, no need to drain TPC. Dr. Martinez signed form to arrange supplies for TPC. Continues on Eliquis, no s/s of bleeding noted. PLAN: Drain TPC if patient symptomatic Pleural fluid sent for analysis CM to assist for home health to assist patient in removing fluid at home Drain 1.5 liters per day or every other day as tolerated Continue on IV Rocephin and Doxycycline Transitioned to oral Eliquis on 06/12/2025 Duoneb treatment I.S.q1H x 10 while awake Titrate oxygen to keep sats >92% Continue with telemetry Continue with Swanson REVIEW OF SYSTEMS: 12 point ROS reviewed with patient. Pertinent positives mentioned above. Otherwise negative. PHYSICAL EXAM: GENERAL: alert, weak, awake oriented x 3 on NC HEENT: EOMI, Sclera non icteric, moist mucosa NECK: Supple, no JVD, trachea midline LUNGS: Diminished breath sounds bilaterally. No wheezes HEART: Regular rate and rhythm. Normal S1 and S2, without murmurs ABD: Abdomen soft, nontender. Bowel sounds present EXT: No clubbing cyanosis or edema NEURO: AAOX3, follows commands Vital Signs (last 8hr) Date Time Temp Pulse Resp B/P (MAP) Pulse Ox O2 Delivery O2 Flow Rate FiO2 06/14/25 08:00 97.5 104 16 95/55 98 Room Air 21 06/14/25 07:10 105 18 06/14/25 07:09 18 N/Cannula Low lpm 3.0 32 06/14/25 03:54 97.5 104 16 100/54 95 Nasal Cannula 3.0 LABS: Hematology Labs: Test 06/14/25 06:10 Range/Units White Blood Count 7.5 4.8-10.8 K/uL Red Blood Count 3.59 L 4.50-6.20 MIL/uL Hemoglobin 10.4 L 14.0-18.0 g/dL Hematocrit 33.0 L 42-54 % Mean Corpuscular Volume 91.9 79-99 fL Mean Corpuscular Hemoglobin 29.0 27.0-33.0 pg Mean Corpuscular Hemoglobin Concent 31.5 L 32.0-36.0 g/dL Red Cell Distribution Width 17.4 H 11.0-15.5 % Platelet Count 136 130-400 K/uL Mean Platelet Volume 9.3 7.5-10.5 fL Nucleated Red Blood Cells 0.0 0.0-0.19 % Chemistry Labs: Test 06/14/25 06:10 06/14/25 05:07 Range/Units Sodium Level 139 136-145 mmol/L Potassium Level 4.2 3.5-5.1 mmol/L Chloride Level 103 101-111 mmol/L Carbon Dioxide Level 30 21-32 mmol/L Blood Urea Nitrogen 9 7-18 mg/dL Creatinine 0.6 0.5-1.3 mg/dL Glomerular Filtration Rate Calc 93 >90 mL/min Random Glucose 124 H 70-105 mg/dL Total Calcium 8.9 8.5-10.1 mg/dL Magnesium Level 1.50 L 1.80-2.40 mg/dL Total Bilirubin 0.4 0.2-1.0 mg/dL Aspartate Amino Transf (AST/SGOT) 15 10-37 U/L Alanine Aminotransferase (ALT/SGPT) 11 L 12-78 U/L Alkaline Phosphatase 111 50-136 U/L Total Protein 5.4 L 6.0-8.3 g/dL Albumin 2.0 L 3.5-5.0 g/dL Whole Blood Glucose 129 H 70-110 MG/DL Coagulation Labs: Test 06/12/25 12:20 Range/Units Activated Partial Thromboplast Time 139.0 #*H 26.3-35.5 SEC DIAGNOSTICS / RADIOLOGY RESULTS: [ ]REASON: pleural effusion ORDERING PHYSICIAN: VICENTA CURIEL NP PROCEDURE: CXR1VW - CHEST 1VW EXAM: XR Chest, 1 View. CLINICAL HISTORY: 89 year old male with pleural effusion. COMPARISON: XR Chest dated 06/12/25. FINDINGS: LUNGS: Stable right basilar opacity which may be due to atelectasis or infiltrate. PLEURAL SPACES: Stable small right pleural effusion. No left-sided effusion. HEART: There is a left-sided cardiac pacemaker. The heart is stable in size. BONES: No acute osseous abnormality. IMPRESSION: Stable exam. /[place] PLAN NEURO: Minimize central acting medications as possible. Maintain fall precautions, adequate lighting during the day PULMONARY: Supplemental 02 as needed. Maintain aspiration precautions at all times CARDIOVASCULAR: Follow hemodynamics. Vital signs per facility protocol GI & NUTRITION: Continue with nutritional support. Continue stool softeners and laxatives as needed. KIDNEYS & ELECTROLYTES: Strict monitoring of intake, output and overall fluid balance. Avoid nephrotoxic medications to the extent possible. Medications to be dosed according to renal function. Monitor electrolytes and replace as needed ENDOCRINE: Maintain blood glucose between 100-180 at all times. Hypoglycemia protocol in place INFECTIOUS DISEASE: Trend temperature, WBC and procalcitonin level Follow cultures, deescalate antibiotics as soon as possible. Panculture if new onset fever ONCOLOGY/HEMATOLOGY/COAGULATION: Monitor for s/s of bleeding Monitor hemoglobin, coagulation studies as needed SKIN: Pressure ulcer prevention per facility protocol Specialty mattress ORTHO/REHAB: Continue PT/OT Prophylaxis: Continue GI and DVT prophylaxis Code Status: Full Resuscitation Disposition: per primary team VICENTA CURIEL NP Jun 14, 2025 11:23
--- NOTE | 2025-06-14 11:36 | NUR ---
PER PROVIDER, NO NEED TO REMOVE FLUID FROM BRIAN DRAIN BASED ON 06/14 CXR REPORT. NURSE TO HOLD FLUID REMOVAL TODAY. Addendum: 06/14/25 at 1531 by GUNJAN MULTANI RN RN Amended: Links added.
--- NOTE | 2025-06-14 21:06 | PN ---
HISTORY OF PRESENT ILLNESS: This is an 89-year-old gentleman with a history of adenocarcinoma of the lung on a combination of immunotherapy, Opdivo and Yervoy. The patient has right-sided pleural effusion. The patient has a Andrei right chest tube catheter in place. He is awaiting to have home health care established, awaiting [facility] acceptance for further care. REVIEW OF SYSTEMS: GENERAL: Denies any tiredness or fatigue. NECK: Denies any neck pain, neck stiffness. RESPIRATORY: Denies any cough, sputum or hemoptysis. CARDIOVASCULAR: Denies any chest pain, palpitations or orthopnea. GASTROINTESTINAL: Denies nausea or vomiting. PHYSICAL EXAMINATION: GENERAL: This is an 89-year-old gentleman not in any distress. VITAL SIGNS: Temperature 97.3, pulse 101, respirations 17, blood pressure 101/58. HEAD AND NECK: Sclerae are anicteric. Neck supple. No lymphadenopathy. LUNGS: Good air entry bilaterally. CARDIOVASCULAR: S1, S2 audible. No added sounds. ABDOMEN: Soft and nontender. Bowel sounds are present. EXTREMITIES: No edema. No signs of DVT. LABORATORY RESULTS: WBC 7.5, hemoglobin 10.4, platelet count 136,000, BUN 9, creatinine 0.6. IMAGING STUDIES: Chest x-ray, 06/14/2025. Impression: Stable exam. ASSESSMENT: Adenocarcinoma of the lung, on immunotherapy, Opdivo and Yervoy. The patient has right pleural effusion, has a chest tube, Titus catheter in place, doing quite well. PLAN: Discharge. The patient is awaiting [facility] approval to be discharged, possibly with home health care. TID: [id number] RECEIPT: [id number] [facility]
[2025-06-15] VITALS (13 sets, daily range): BP systolic 89–141; BP diastolic 51–58; PULSE 77–109; RESP 17–20; TEMP 97.3–98.6; O2SAT 97–99
--- NOTE | 2025-06-15 10:51 | PN ---
[facility] PROGRESS NOTE Date Patient Seen: Jun 15, 2025 Time of Visit: 10:51 Supervising Physician: Dr. Ezequiel Joshi [facility] Outpatient Specialists: Dr. Tobias ] Inpatient Consults: [BIS team: pleural effusion ] PROBLEM LIST: Acute hypoxemic respiratory failure Bilateral pleural effusions, R>L with recent right thoracentesis on 05/22/2025 with 1.8L, Exudative, pathology (+) adenocarcinoma S/P right tunneled catheter insertion by IR on 06/11/25 with drainage of 1.5L on 06/11/25 Lung cancer on immunotherapy Acute RLE DVT Bilateral pneumonia, POA History of bladder thrombus History of Bladder CA PPM AICD in situ COPD, not on exacerbation Former smoker Hypothyroidism Chronic Swanson Octogenarian INTERVAL HISTORY: Patient assessed at bedside. AAOX3. Currently on 02@2LPM via [place]. Complains of more SOB of breath today, diminished breath sounds to right side. Will drain TPC today with limit of 1.5L. Patient in agreement. Continues on Eliquis, no s/s of bleeding noted. Prognosis is guarded. PLAN: Drain TPC if patient symptomatic Pleural fluid sent for analysis CM to assist for home health to assist patient in removing fluid at home Drain 1.5 liters per day or every other day as tolerated Continue on IV Rocephin and Doxycycline Transitioned to oral Eliquis on 06/12/2025 Duoneb treatment I.S.q1H x 10 while awake Titrate oxygen to keep sats >92% Continue with telemetry Continue with Swanson REVIEW OF SYSTEMS: 12 point ROS reviewed with patient. Pertinent positives mentioned above. Otherwise negative. PHYSICAL EXAM: GENERAL: alert, weak, awake oriented x 3 on NC HEENT: EOMI, Sclera non icteric, moist mucosa NECK: Supple, no JVD, trachea midline LUNGS: Diminished breath sounds bilaterally. No wheezes HEART: Regular rate and rhythm. Normal S1 and S2, without murmurs ABD: Abdomen soft, nontender. Bowel sounds present EXT: No clubbing cyanosis or edema NEURO: AAOX3, follows commands Vital Signs (last 8hr) Date Time Temp Pulse Resp B/P (MAP) Pulse Ox O2 Delivery O2 Flow Rate FiO2 06/15/25 08:00 97.7 106 17 89/55 99 Nasal Cannula 3.0 06/15/25 06:57 18 N/Cannula Low lpm 3.0 32 06/15/25 06:56 98 18 06/15/25 04:00 97.9 105 20 94/51 95 Nasal Cannula 3.0 LABS: Hematology Labs: Test 06/14/25 06:10 Range/Units White Blood Count 7.5 4.8-10.8 K/uL Red Blood Count 3.59 L 4.50-6.20 MIL/uL Hemoglobin 10.4 L 14.0-18.0 g/dL Hematocrit 33.0 L 42-54 % Mean Corpuscular Volume 91.9 79-99 fL Mean Corpuscular Hemoglobin 29.0 27.0-33.0 pg Mean Corpuscular Hemoglobin Concent 31.5 L 32.0-36.0 g/dL Red Cell Distribution Width 17.4 H 11.0-15.5 % Platelet Count 136 130-400 K/uL Mean Platelet Volume 9.3 7.5-10.5 fL Nucleated Red Blood Cells 0.0 0.0-0.19 % Chemistry Labs: Test 06/15/25 05:25 06/14/25 06:10 Range/Units Whole Blood Glucose 120 H 70-110 MG/DL Sodium Level 139 136-145 mmol/L Potassium Level 4.2 3.5-5.1 mmol/L Chloride Level 103 101-111 mmol/L Carbon Dioxide Level 30 21-32 mmol/L Blood Urea Nitrogen 9 7-18 mg/dL Creatinine 0.6 0.5-1.3 mg/dL Glomerular Filtration Rate Calc 93 >90 mL/min Random Glucose 124 H 70-105 mg/dL Total Calcium 8.9 8.5-10.1 mg/dL Magnesium Level 1.50 L 1.80-2.40 mg/dL Total Bilirubin 0.4 0.2-1.0 mg/dL Aspartate Amino Transf (AST/SGOT) 15 10-37 U/L Alanine Aminotransferase (ALT/SGPT) 11 L 12-78 U/L Alkaline Phosphatase 111 50-136 U/L Total Protein 5.4 L 6.0-8.3 g/dL Albumin 2.0 L 3.5-5.0 g/dL DIAGNOSTICS / RADIOLOGY RESULTS: [ ] PLAN NEURO: Minimize central acting medications as possible. Maintain fall precautions, adequate lighting during the day PULMONARY: Supplemental 02 as needed. Maintain aspiration precautions at all times CARDIOVASCULAR: Follow hemodynamics. Vital signs per facility protocol GI & NUTRITION: Continue with nutritional support. Continue stool softeners and laxatives as needed. KIDNEYS & ELECTROLYTES: Strict monitoring of intake, output and overall fluid balance. Avoid nephrotoxic medications to the extent possible. Medications to be dosed according to renal function. Monitor electrolytes and replace as needed ENDOCRINE: Maintain blood glucose between 100-180 at all times. Hypoglycemia protocol in place INFECTIOUS DISEASE: Trend temperature, WBC and procalcitonin level Follow cultures, deescalate antibiotics as soon as possible. Panculture if new onset fever ONCOLOGY/HEMATOLOGY/COAGULATION: Monitor for s/s of bleeding Monitor hemoglobin, coagulation studies as needed SKIN: Pressure ulcer prevention per facility protocol Specialty mattress ORTHO/REHAB: Continue PT/OT Prophylaxis: Continue GI and DVT prophylaxis Code Status: Full Resuscitation Disposition: per primary team A total of 40 minutes spent for direct patient care including chart review, conversation with patient and/ or family, consultation, and discussion with staff, not including procedures. VICENTA CURIEL NP Jun 15, 2025 10:51
--- NOTE | 2025-06-15 12:57 | PN ---
HISTORY OF PRESENT ILLNESS: This is an 89-year-old gentleman with a history of adenocarcinoma of the lung on combination immunotherapy Opdivo and Yervoy. The patient has right-sided pleural effusion. The patient has a Tracy right-sided chest tube catheter in place, awaiting home health care establishment, but the patient is waiting for VA benefit and recommendations. REVIEW OF SYSTEMS: GENERAL: Denies any tightness or fatigue. NECK: Denies any neck pain, neck stiffness. RESPIRATORY: Denies any cough, sputum, hemoptysis. CARDIOVASCULAR: Denies any chest pain, palpitations, orthopnea. GASTROINTESTINAL: Denies nausea or vomiting. PHYSICAL EXAMINATION: GENERAL: This is an 89-year-old gentleman, not in any respiratory distress. VITAL SIGNS: Temperature 97.7, pulse 106, respirations 17, blood pressure 89/55. HEAD AND NECK: Sclerae are anicteric. Neck supple. No lymphadenopathy. LUNGS: Good air entry. Catheter in place. ABDOMEN: Soft, nontender. EXTREMITIES: No edema. No signs of DVT. RESULTS REVIEW: No new labs. IMAGING STUDIES: Chest x-ray from 06/14/2025 stable exam. ASSESSMENT AND PLAN: 1. Adenocarcinoma of the lung on combination immunotherapy, Opdivo and Yervoy. The patient with right-sided pleural effusion, has a Andrei chest tube catheter in place, doing quite well. 2. Discharge planning. The patient will need establishment with the [facility] and further recommendation. The patient may need home health. He also requires oxygen as well. Awaiting approval through the [facility] system. 3. Continue all supportive care. TID: [id number] RECEIPT: [id number]
--- NOTE | 2025-06-15 16:45 | NUR ---
REMOVED 1500ML OF FLUID FROM BRIAN DRAIN PER PROVIDER REQUEST DUE TO PATIENT COMPLAINT OF SOB, PATIENT ALERT AND ORIENTED X 4, DENIES PAIN, NO COMPLICATIONS.
[2025-06-16] VITALS (13 sets, daily range): BP systolic 95–118; BP diastolic 50–58; PULSE 86–104; RESP 18–20; TEMP 97.5–97.9; O2SAT 95–97
[2025-06-16 05:10] LABS: NUCLEATED RED BLOOD CELLS 0.0 % (0.0-0.19); PLATELET COUNT (AUTO) 140.0 K/uL (130-400); RED BLOOD CELL COUNT(AUTO) 3.4 MIL/uL (4.50-6.20); RED CELL DISTRIBUTION WIDTH 17.2 % (11.0-15.5); WHITE BLOOD COUNT (AUTO) 7.8 K/uL (4.8-10.8)
[2025-06-16 05:19] LABS: CREATININE 0.5 mg/dL (0.5-1.3); GLOMERULAR FILTR. RATE CALC 98.0 mL/min (>90); GLUCOSE,RANDOM 135.0 mg/dL (70-105); SODIUM SERUM 137.0 mmol/L (136-145); UREA NITROGEN, BLOOD 11.0 mg/dL (7-18)
--- NOTE | 2025-06-16 08:08 | PN ---
LOCATION: [facility]. SUBJECTIVE: The patient remained perfectly stable over the weekend. The family changed strategy in that they wanted the [facility] to take over the home health care, was waiting for the [facility] to respond. He is awake, alert, and perfectly stable. Chest tube in place. REVIEW OF SYSTEMS: Completely negative. PHYSICAL EXAMINATION: GENERAL: Elderly pleasant man on nasal cannula oxygen. VITAL SIGNS: Blood pressure 95/50, pulse 97, respirations 20. HEENT: Benign. CHEST: Showed decreased breath sounds. Chest tube in place. HEART: Regular rate and rhythm. ABDOMEN: Soft. IMPRESSION: * Adenocarcinoma of the lung, on immunotherapy. * Right-sided pleural effusion for malignant disease. * DVT. * Other problems as listed. PLAN: Continue supportive care. He is DNR/DNI, although they want medical treatment, waiting for the [facility] to respond to the [place] catheter and drainage at home. TID: [id number] RECEIPT: [id number]
--- NOTE | 2025-06-16 11:19 | PN ---
[facility] PROGRESS NOTE Date Patient Seen: Jun 16, 2025 Time of Visit: 11:19 Supervising Physician: Dr. Stefani Crawford [facility] Outpatient Specialists: Dr. Tobias ] Inpatient Consults: [BIS team: pleural effusion ] PROBLEM LIST: Acute hypoxemic respiratory failure Bilateral pleural effusions, R>L with recent right thoracentesis on 05/22/2025 with 1.8L, Exudative, pathology (+) adenocarcinoma S/P right tunneled catheter insertion by IR on 06/11/25 with drainage of 1.5L on 06/11/25, S/P drainage of 1.5L on 06/15/25 Lung cancer on immunotherapy Acute RLE DVT on Eliquis Bilateral pneumonia, POA History of bladder thrombus History of Bladder CA PPM AICD in situ COPD, not on exacerbation Former smoker Hypothyroidism Chronic Swanson Octogenarian INTERVAL HISTORY: Patient assessed at bedside. AAOX3. Currently on 02@2LPM via [place]. S/P drainage of TPC yesterday with 1.5L removed. Continues on Eliquis, no s/s of bleeding noted. CM arranging home TPC supplies. PLAN: Drain TPC if patient symptomatic Pleural fluid sent for analysis CM to assist for home health to assist patient in removing fluid at home Drain 1.5 liters per day or every other day as tolerated Continue on IV Rocephin and Doxycycline Transitioned to oral Eliquis on 06/12/2025 Duoneb treatment I.S.q1H x 10 while awake Titrate oxygen to keep sats >92% Continue with telemetry Continue with Swanson REVIEW OF SYSTEMS: 12 point ROS reviewed with patient. Pertinent positives mentioned above. Otherwise negative. PHYSICAL EXAM: GENERAL: alert, weak, awake oriented x 3 on NC HEENT: EOMI, Sclera non icteric, moist mucosa NECK: Supple, no JVD, trachea midline LUNGS: Diminished breath sounds bilaterally. No wheezes HEART: Regular rate and rhythm. Normal S1 and S2, without murmurs ABD: Abdomen soft, nontender. Bowel sounds present EXT: No clubbing cyanosis or edema NEURO: AAOX3, follows commands Vital Signs (last 8hr) Date Time Temp Pulse Resp B/P (MAP) Pulse Ox O2 Delivery O2 Flow Rate FiO2 06/16/25 10:15 97 Nasal Cannula* 3 32 06/16/25 10:14 90 18 06/16/25 08:15 93 18 N/Cannula Low lpm 3.0 32 06/16/25 08:00 97.5 97 18 95/54 97 Room Air 06/16/25 04:00 97.9 97 20 95/50 98 Nasal Cannula 2.0 LABS: Hematology Labs: Test 06/16/25 04:43 Range/Units White Blood Count 7.8 4.8-10.8 K/uL Red Blood Count 3.40 L 4.50-6.20 MIL/uL Hemoglobin 10.0 L 14.0-18.0 g/dL Hematocrit 31.9 L 42-54 % Mean Corpuscular Volume 93.8 79-99 fL Mean Corpuscular Hemoglobin 29.4 27.0-33.0 pg Mean Corpuscular Hemoglobin Concent 31.3 L 32.0-36.0 g/dL Red Cell Distribution Width 17.2 H 11.0-15.5 % Platelet Count 140 130-400 K/uL Mean Platelet Volume 9.6 7.5-10.5 fL Nucleated Red Blood Cells 0.0 0.0-0.19 % Chemistry Labs: Test 06/16/25 05:21 06/16/25 04:43 Range/Units Whole Blood Glucose 122 H 70-110 MG/DL Sodium Level 137 136-145 mmol/L Potassium Level 4.5 3.5-5.1 mmol/L Chloride Level 102 101-111 mmol/L Carbon Dioxide Level 34 H 21-32 mmol/L Blood Urea Nitrogen 11 7-18 mg/dL Creatinine 0.5 0.5-1.3 mg/dL Glomerular Filtration Rate Calc 98 >90 mL/min Random Glucose 135 H 70-105 mg/dL Total Calcium 8.4 L 8.5-10.1 mg/dL Magnesium Level 1.60 L 1.80-2.40 mg/dL DIAGNOSTICS / RADIOLOGY RESULTS: NA PLAN NEURO: Minimize central acting medications as possible. Maintain fall precautions, adequate lighting during the day PULMONARY: Supplemental 02 as needed. Maintain aspiration precautions at all times CARDIOVASCULAR: Follow hemodynamics. Vital signs per facility protocol GI & NUTRITION: Continue with nutritional support. Continue stool softeners and laxatives as needed. KIDNEYS & ELECTROLYTES: Strict monitoring of intake, output and overall fluid balance. Avoid nephrotoxic medications to the extent possible. Medications to be dosed according to renal function. Monitor electrolytes and replace as needed ENDOCRINE: Maintain blood glucose between 100-180 at all times. Hypoglycemia protocol in place INFECTIOUS DISEASE: Trend temperature, WBC and procalcitonin level Follow cultures, deescalate antibiotics as soon as possible. Panculture if new onset fever ONCOLOGY/HEMATOLOGY/COAGULATION: Monitor for s/s of bleeding Monitor hemoglobin, coagulation studies as needed SKIN: Pressure ulcer prevention per facility protocol Specialty mattress ORTHO/REHAB: Continue PT/OT Prophylaxis: Continue GI and DVT prophylaxis Code Status: Full Resuscitation Disposition: per primary team A total of 40 minutes spent for direct patient care including chart review, conversation with patient and/ or family, consultation, and discussion with staff, not including procedures. VICENTA CURIEL NP Jun 16, 2025 11:19
--- NOTE | 2025-06-16 11:52 | NUR ---
RECD CALL FROM GUNJAN, SOFTWARE IMPLEMENTATION SPECIALIST OF RESIDENTIAL RETIREMENT; STATES SHE RECEIVED STRANGE CALL FROM '[employer]' - ABOUT HOW THEY WERE CONTRACTED TO LOOK AFTER THE PATIENT BUT COULD NOT FIND THE PATIENT. GUNJAN CALLED TO IFIND OUT IF PATIENT WAS STILL IN THE HOSPITAL. ASSURED HER YES,, IN [id number] ADVISED HER THAT HER MESSAGE AND # [phone] WOULD BE GIVEN TO MINDY ALMEIDA
--- NOTE | 2025-06-16 15:22 | NUR ---
CM NOTE CM f/u with Gabriella [facility]. States request for home health and [place] cath supplies received. CM received notification that patient is active with [facility] home health. CM spoke to Silvia with [facility] . States they are able to manage the [place] cath. Reports they were following patient for other skilled need. CM notified Silvia that patient is ready for d/c home today once supply shipment is confirmed. CM also attempted to call [facility] for update regarding [place] cath supplies. No answer, CM left phone number for call back. Patient reports he has home o2. CM spoke to Iris with [facility]. States they are able to transport patient home at d/c. Asked that staff call process control engineer named Tori [phone] once ready for transportation home. CM attempted multiple call to [facility] for update but no answer. CM left voicemail for call back. Addendum: 06/16/25 at 1528 by MINDY MCCOY CM Amended: Links added.
--- NOTE | 2025-06-16 18:55 | HMCIMG ---
EXAM: CR Chest, single view. CLINICAL HISTORY: ET COMPARISON: Prior chest radiograph dated 14 June 2025. FINDINGS: Mild hyperinflation of the lung parenchyma. Mild right-sided pleural effusion with adjacent lung atelectasis. A battery pack is in the left anterior chest wall with pacemaker wires in the right atrium and ventricle. Normal cardiac size. No evidence of pneumothorax. Atherosclerotic calcification of the aortic arch. No acute osseous abnormality. Mild degenerative changes in the mid and lower thoracic spine. IMPRESSION: Mild hyperinflation of the lung parenchyma. Mild right-sided pleural effusion with adjacent lung atelectasis. A battery pack is in the left anterior chest wall with pacemaker wires in the right atrium and ventricle. Normal cardiac size. No evidence of pneumothorax. Compared to the prior study, there is a mild reduction in the right-sided pleural effusion. /[place]
[2025-06-17] VITALS (11 sets, daily range): BP systolic 100–158; BP diastolic 52–72; PULSE 51–112; RESP 16–20; TEMP 97.5–98.2; O2SAT 94–100
--- NOTE | 2025-06-17 08:12 | PN ---
LOCATION: [facility]. SUBJECTIVE: The patient remained stable overnight. He is tolerating the chest tube, tolerating the oxygen. No fever, chills or other complaints. Pending [facility] of the [facility]. PHYSICAL EXAMINATION: GENERAL: Shows a pleasant man. VITAL SIGNS: Blood pressure 158/72, pulse 101, respirations 20. HEENT: Benign. CHEST: Showed decreased breath sounds. He has a chest tube in the left chest. HEART: Regular rate and rhythm. ABDOMEN: Soft. EXTREMITIES: Show edema. NEUROLOGIC: Alert and oriented. LABORATORY DATA: CBC and platelets 140,000. IMPRESSION: * Acute hypoxic respiratory failure * Bilateral pleural effusions, malignant pleural effusion on the right, status post tunnel catheter. * Acute DVT, lower extremity. * Bilateral pneumonia. * History of bladder thrombus. * History of bladder cancer. * Stage IV lung cancer. * Pacemaker. * COPD. * Hypothyroidism. PLAN: Continue medical management. He is ready to be discharged home under home health once the VA makes their arrangement. He is DNR, DNI. TID: [id number] RECEIPT: [id number]
--- NOTE | 2025-06-17 09:42 | NUR ---
[facility] Care Coordination Call/Service Connection Patient is not service connected for SNF through the [facility]. Per Silvia with the [facility], pharmacy still has not confirmed the approval and ETA of delivery. States will follow up. Updated CM.
[2025-06-17] MEDS: BENZOCAINE/MENTH/CETYLPYRD CL 1 EACH LOZENGE MM PRN (11:47)
[2025-06-17] MEDS: guaiFENesin-DM 200/20MG 10ML PO PRN (11:47)
--- NOTE | 2025-06-17 12:37 | NUR ---
Discharge Update: Received call from Silvia stating that DME will take at least 10 days for delivery. CM Director updated. States to give patient 10 days of equipment for discharge home. Silvia at [place] updated. States [facility] and home-based program will follow up with patient. Pending DME delivery.
--- NOTE | 2025-06-17 13:49 | PN ---
[facility] PROGRESS NOTE Date Patient Seen: Jun 17, 2025 Time of Visit: 13:48 Supervising Physician: Dr. Crawford [facility]] Outpatient Specialists: Dr. 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 Patient on 3 L nasal cannula at this time with home oxygen delivered. Case management arranging for catheter supplies at this time with home health agency. Questions answered at bedside, guaifenesin and Robitussin added to the chart for the patient's cough and to improve expectoration. Patient is cleared from a pulmonary perspective once catheter supplies are delivered. Continues on Eliquis, no s/s of bleeding noted. CM arranging home TPC supplies. PLAN: Drain TPC if patient symptomatic Pleural fluid sent for analysis CM to assist for home health to assist patient in removing fluid at home Drain 1.5 liters per day or every other day as tolerated Continue on IV Rocephin and Doxycycline Transitioned to oral Eliquis on 06/12/2025 Duoneb treatment I.S.q1H x 10 while awake Titrate oxygen to keep sats >92% Continue with telemetry Continue with Sky REVIEW OF SYSTEMS: 12 point ROS reviewed with patient. Pertinent positives mentioned above. Otherwise negative. PHYSICAL EXAM: GENERAL: alert, weak, awake oriented x 3 on NC HEENT: EOMI, Sclera non icteric, moist mucosa NECK: Supple, no JVD, trachea midline LUNGS: Diminished breath sounds bilaterally. No wheezes HEART: Regular rate and rhythm. Normal S1 and S2, without murmurs ABD: Abdomen soft, nontender. Bowel sounds present EXT: No clubbing cyanosis or edema NEURO: AAOX3, follows commands Vital Signs (last 8hr) Date Time Temp Pulse Resp B/P (MAP) Pulse Ox O2 Delivery O2 Flow Rate FiO2 06/17/25 13:22 98.1 112 20 116/56 99 Nasal Cannula 3.0 06/17/25 10:11 96 18 06/17/25 10:11 96 18 N/Cannula Low lpm 3.0 32 06/17/25 08:32 97.9 103 20 100/52 98 Nasal Cannula 3.0 06/17/25 07:48 94 Nasal Cannula* 3 32 06/17/25 06:55 97 18 06/17/25 06:54 97 18 N/Cannula Low lpm 3.0 32 LABS: Hematology Labs: Test 06/16/25 04:43 Range/Units White Blood Count 7.8 4.8-10.8 K/uL Red Blood Count 3.40 L 4.50-6.20 MIL/uL Hemoglobin 10.0 L 14.0-18.0 g/dL Hematocrit 31.9 L 42-54 % Mean Corpuscular Volume 93.8 79-99 fL Mean Corpuscular Hemoglobin 29.4 27.0-33.0 pg Mean Corpuscular Hemoglobin Concent 31.3 L 32.0-36.0 g/dL Red Cell Distribution Width 17.2 H 11.0-15.5 % Platelet Count 140 130-400 K/uL Mean Platelet Volume 9.6 7.5-10.5 fL Nucleated Red Blood Cells 0.0 0.0-0.19 % Chemistry Labs: Test 06/16/25 15:33 06/16/25 04:43 Range/Units Whole Blood Glucose 143 H 70-110 MG/DL Sodium Level 137 136-145 mmol/L Potassium Level 4.5 3.5-5.1 mmol/L Chloride Level 102 101-111 mmol/L Carbon Dioxide Level 34 H 21-32 mmol/L Blood Urea Nitrogen 11 7-18 mg/dL Creatinine 0.5 0.5-1.3 mg/dL Glomerular Filtration Rate Calc 98 >90 mL/min Random Glucose 135 H 70-105 mg/dL Total Calcium 8.4 L 8.5-10.1 mg/dL Magnesium Level 1.60 L 1.80-2.40 mg/dL DIAGNOSTICS / RADIOLOGY RESULTS: [ ] PLAN NEURO: Minimize central acting medications as possible. Maintain fall precautions, adequate lighting during the day PULMONARY: Supplemental 02 as needed. Maintain aspiration precautions at all times CARDIOVASCULAR: Follow hemodynamics. Vital signs per facility protocol GI & NUTRITION: Continue with nutritional support. Continue stool softeners and laxatives as needed. KIDNEYS & ELECTROLYTES: Strict monitoring of intake, output and overall fluid balance. Avoid nephrotoxic medications to the extent possible. Medications to be dosed according to renal function. Monitor electrolytes and replace as needed ENDOCRINE: Maintain blood glucose between 100-180 at all times. Hypoglycemia protocol in place INFECTIOUS DISEASE: Trend temperature, WBC and procalcitonin level Follow cultures, deescalate antibiotics as soon as possible. Panculture if new onset fever ONCOLOGY/HEMATOLOGY/COAGULATION: Monitor for s/s of bleeding Monitor hemoglobin, coagulation studies as needed SKIN: Pressure ulcer prevention per facility protocol Specialty mattress ORTHO/REHAB: Continue PT/OT Prophylaxis: Continue GI and DVT prophylaxis Code Status: Full Resuscitation Disposition: per primary team A total of 40 minutes spent for direct patient care including chart review, conversation with patient and/ or family, consultation, and discussion with st aff, not including procedures. VERENICE TILLEY Jun 17, 2025 13:48
--- NOTE | 2025-06-17 15:51 | NUR ---
SPOKE TO [place] FROM IR, STATES [place] CATHETER SUPPLIES ARE WITH CENTRAL SUPPLY. SPOKE TO RAMAKRISHNA FROM PURCHASING, RECEIVED 6 [place] DRAINAGE BOTTLES FOR PATIENT BUT ACCESS CATHETER SHIPMENT WILL ARRIVE TOMORROW. CASE OF CATHETERS WAS GIVEN TI RADIOLOGY. SPOKE TO LAW FROM RADIOLOGY IF THEY COULD LET ME HAVE 6 ACCESS CATHETERS; 6 ACCESS CATHETERS PROVIDED TO ME FROM RADIOLOGY
--- NOTE | 2025-06-17 16:10 | NUR ---
Discharge Planning: Plan is for discharge home today with [facility]. Number to call report given to Shobha, patient's nurse to call report. .
--- NOTE | 2025-06-17 16:15 | NUR ---
GAVE REPORT TO BIJAL GREGORIO WITH [facility]. WILL BE SENDING PATIENT WITH A 10 DAY SUPPLY OF [place] CATHETER EQUIPMENT. A/P BIJAL , IF THEY DO NOT RECEIVE SUPPLIES FROM THE PA IN 10 DAYS, THEY WILL BE SENDING HIM TO THE ER FOR THORACENTESIS/FLUID REMOVAL.
--- NOTE | 2025-06-17 16:34 | NUR ---
CALLED STACY FROM [facility]. NO ANSWER AND VOICE MAIL FULL
--- NOTE | 2025-06-17 16:42 | NUR ---
CALLED STACY AT [facility] AND WILL ACCEPT PATIENT BACK. WILL BE NEEDING EMS TRANSFER. ATTEMPTED TO INFORM [facility] ANALYST FOR TRANSFER
--- NOTE | 2025-06-17 16:53 | NUR ---
[employer] CATHETER DRAIN PLACED REMOVED 700ML OF FLUID/ DRAINAGE DONE OVER 1/2 HOUR
--- NOTE | 2025-06-17 16:54 | NUR ---
[facility] NEONATAL ICU COORDINATOR WILL ARRANGE EMS TRANSFER
--- NOTE | 2025-06-17 18:40 | NUR ---
CALLED [facility] FOR TRANSFER. PAPERWORK FAXED REQUESTED
--- NOTE | 2025-06-17 19:17 | NUR ---
EMS ARRIVAL FOR TRANSFER. IV REMOVED. [place] CATHETER APPLIANCES TAKEN WITH EMS
== END 2025-06-17 19:22 | disposition home or self-care (01) | DRG 180 ==
LOC: EDH 11:29 → EDHIP 13:36 → 3AH 14:40
PROVIDERS: ADMIT Internal Medicine Hematology & Oncology; ATTEND Internal Medicine Hematology & Oncology
PROC: 0W9930Z Drainage of Right Pleural Cavity with Drainage Device, Percutaneous Approach (ICD-10-PCS; principal; 2025-06-11)
DX: C34.90 Malignant neoplasm of unspecified part of unspecified bronchus or lung (principal); J18.9 Pneumonia, unspecified organism; J96.01 Acute respiratory failure with hypoxia; J91.0 Malignant pleural effusion; I82.411 Acute embolism and thrombosis of right femoral vein; J44.0 Chronic obstructive pulmonary disease with (acute) lower respiratory infection; R62.7 Adult failure to thrive; J44.9 Chronic obstructive pulmonary disease, unspecified; E03.9 Hypothyroidism, unspecified; C67.9 Malignant neoplasm of bladder, unspecified; E11.9 Type 2 diabetes mellitus without complications; I50.9 Heart failure, unspecified; I11.0 Hypertensive heart disease with heart failure; F17.200 Nicotine dependence, unspecified, uncomplicated; E78.5 Hyperlipidemia, unspecified; Z66 Do not resuscitate; Z90.49 Acquired absence of other specified parts of digestive tract; Z99.81 Dependence on supplemental oxygen; Z95.810 Presence of automatic (implantable) cardiac defibrillator; Z85.51 Personal history of malignant neoplasm of bladder
CPT/HCPCS: 32550; 36415; 36600; 71045; 71270; 75989; 76000; 76942; 80048; 80053; 82435; 82803; 82945; 82947; 82948; 83605; 83615; 83735; 83880; 83986; 84132; 84145; 84157; 84295; 84484; 85018; 85025; 85027; 85378; 85610; 85730; 86738; 87040; 87071; 87116; 87205; 87206; 87449; 87635; 87804; 88108; 88305; 89051; 93005; 93970; 94640; 94664; 94667; 94668; 96365; 99285; C1769; G0378; J0456; J0696; J1644; J1938; J2250; J3010; J3475; J3490; J7030; Q9967; A7048